=== PATIENT | male | born 1960 | race Caucasian/White ===

== ENCOUNTER 2020-01-20 08:24 | Outpatient (CLI) | payer MEDICARE, OTHER, SELFPAY ==
--- NOTE | 2020-02-19 14:19 | WPDHOMESLEEP ---
Sleep Study - Home Unattended Date of Study: 01/20/20 Ordering Provider: Jacob Sanford MD Interpreting Physician: Lauren Domínguez MD Home Sleep Study Type: Apnea Link Air Height: 1.83 m Weight: 111.13 kg Body Mass Index: 33.2 Neck Circumference (inches): 14.5 Ryan: 7 Reason for Sleep Study Diagnosed with LISBETH in 2006, using CPAP,equipment now broken; increased hypersomnia Sleep History Donald Guzman is a 60 year-old man with a history of obstructive sleep apnea. He has a CPAP. He has excessive daytime sleepiness and has falled asleep unintentionally during the day at work. He has a broken head strap and has not been able to use his CPAP recently. He has nocturia 1-2 times per night. His Ryan was 7 when he had his last study in 2006. He did not complete several pages of the current sleep questionnaire is there is no current Ryan. He had a prior sleep study on September 22, 2006 showing moderate obstructive sleep apnea with an AHI of 21 with heavy snoring and oxygen desaturation to 82%. His oxygen desaturation index was 92.2. His optimal pressure was 12 cm of CPAP. Habits: Never smoked. No alcohol. [facility] Past Medical History Medical History Acute non-recurrent maxillary sinusitis Ataxia Chronic depression Inflamed seborrheic keratosis Male erectile dysfunction, unspecified Type 2 diabetes mellitus without complication, with long-term current use of insulin Family History Family History Father Family history of diabetes mellitus in first degree relative Diabetes mellitus Hypertension Family history of cardiovascular disease Mother Family history of diabetes mellitus in first degree relative Diabetes mellitus Hypertension Family history of cardiovascular disease Grandparent Diabetes mellitus Hypertension Family history of cardiovascular disease Family history of malignant neoplasm Social History Social History Smoking status: Never smoker Alcohol intake: never Medications Home Medications Medication Instructions Recorded Confirmed Type cyanocobalamin (vitamin B-12) 5,000 mcg SUBLINGUAL DAILY 02/11/19 01/06/20 History 5,000 mcg sublingual tablet levofloxacin 500 mg tablet 500 mg PO DAILY 02/11/19 01/06/20 History magnesium oxide 500 mg tablet 500 mg PO DAILY 02/11/19 01/06/20 History warfarin 10 mg tablet 10 mg PO DAILY 02/11/19 01/06/20 History lancets #200 each 03/14/19 01/06/20 Rx sildenafil (pulm.hypertension) 20 See Rx Instructions PO ONCE #90 03/17/19 01/06/20 Rx mg tablet tablet tadalafil 10 mg tablet 10 mg PO DAILY PRN #10 tablet 06/02/19 01/06/20 Rx pen needle, diabetic 31 gauge x #300 each 06/21/19 01/06/20 Rx 5/ pen needle, diabetic 31 gauge x #100 each 06/24/19 01/06/20 Rx 05/26 warfarin 1 mg tablet 3 mg PO DAILY #270 tablet 10/04/19 01/06/20 Rx atorvastatin 20 mg tablet 20 mg PO DAILY #90 tablet 10/07/19 01/06/20 Rx warfarin 1 mg tablet 3 mg PO DAILY #270 tablet 10/07/19 01/06/20 Rx insulin detemir U-100 100 unit/mL 40 unit SUB-Q DAILY #15 ml 10/14/19 01/06/20 Rx (3 mL) subcutaneous pen metformin 500 mg tablet,extended 2,000 mg PO QPM #360 tablet 11/04/19 01/06/20 Rx release 24 hr escitalopram oxalate 20 mg tablet 20 mg PO DAILY #90 tablet 11/26/19 01/06/20 Rx trazodone 50 mg tablet 50 mg PO .qhs #90 tablet 12/13/19 01/06/20 Rx aripiprazole 2 mg tablet 2 mg PO DAILY #90 tablet 01/06/20 01/06/20 Rx gabapentin 600 mg tablet 600 mg PO TID #270 tablet 01/06/20 01/06/20 Rx tamsulosin 0.4 mg capsule 0.4 mg PO . b.i.d. #180 cap 01/06/20 01/06/20 Rx cyclobenzaprine 10 mg tablet 10 mg PO TID PRN #90 tablet 01/20/20 Rx lancets 30 gauge #100 ea 02/19/20 Rx Sleep Procedure This test was performed using 4 channel monitoring including respiratory effort channel, snoring channel, heart rate
[2020-02-19 14:32] VITALS: BMI 33.2
== END 2020-01-20 08:25 | disposition home or self-care (01) ==
LOC: ANHCSM 08:25
PROVIDERS: PCP Family Medicine; Visit Provider Family Medicine
DX: G47.33 Obstructive sleep apnea (adult) (pediatric) (principal)
CPT/HCPCS: 95806

== ENCOUNTER 2020-03-20 02:12 | Outpatient (CLI) | payer MEDICARE, OTHER, SELFPAY ==
[2020-03-20 17:23] LABS: SARS-CoV-2 RNA PCR Negative
== END 2020-03-20 02:13 | disposition home or self-care (01) ==
LOC: ANHCOVIDDT 02:12
PROVIDERS: PCP Family Medicine; Visit Provider Internal Medicine Critical Care Medicine
DX: R68.89 Other general symptoms and signs (principal); Z20.822 Contact with and (suspected) exposure to COVID-19
CPT/HCPCS: C9803; U0003

== ENCOUNTER 2020-03-23 08:23 | Outpatient (CLI) | payer MEDICARE, OTHER, SELFPAY ==
--- NOTE | 2020-05-01 15:05 | WPDSLEEPSTUD ---
Sleep Study Date of Study: 03/23/20 Ordering Provider: Jacob Sanford MD Interpreting Physician: Lauren Domíngeuz MD Sleep Study Type: CPAP Titration Height: 1.85 m Weight: 111.13 kg Body Mass Index: 32.3 Neck Circumference: 38.1 cm Everett: 7 Reason for Sleep Study Home Sleep Test 01/20/2020-AHI 39, lowest sat 81%, 91 min / 17% of the test < 88% saturation; returns for a titration LISBETH diagnosed 2006, previously treated with 12 cm, equipment broke Sleep History Donald Guzman is a 60-year-old male with a history of LISBETH in 2006, was on 12 cm CPAP which has broken, and he has not been able to use it. He has excessive daytime sleepiness and has fallen asleep unintentionally during the day at work. He has a broken head strap and has not been able to use his CPAP recently. He has nocturia 1-2 times per night. His Everett was 7 when he had his last study in 2006. He did not complete several pages of the current sleep questionnaire is there is no current Everett. He had a prior sleep study on September 22, 2006 showing moderate obstructive sleep apnea with an AHI of 21 with heavy snoring and oxygen desaturation to 82%. His oxygen desaturation index was 92.2. His optimal pressure was 12 cm of CPAP. Habits: Never smoked. No alcohol. [facility] Past Medical History Medical History (Updated 02/19/20 @ 14:40 by Lauren Domínguez MD) Acute non-recurrent maxillary sinusitis Ataxia Chronic depression Inflamed seborrheic keratosis Male erectile dysfunction, unspecified Obstructive sleep apnea (~2006) Type 2 diabetes mellitus without complication, with long-term current use of insulin Family History Family History Father Family history of diabetes mellitus in first degree relative Diabetes mellitus Hypertension Family history of cardiovascular disease Mother Family history of diabetes mellitus in first degree relative Diabetes mellitus Hypertension Family history of cardiovascular disease Grandparent Diabetes mellitus Hypertension Family history of cardiovascular disease Family history of malignant neoplasm Social History Social History Smoking status: Never smoker Alcohol intake: never Medications Home Medications Medication Instructions Recorded Confirmed Type cyanocobalamin (vitamin B-12) 5,000 mcg SUBLINGUAL DAILY 02/11/19 01/06/20 History 5,000 mcg sublingual tablet levofloxacin 500 mg tablet 500 mg PO DAILY 02/11/19 01/06/20 History magnesium oxide 500 mg tablet 500 mg PO DAILY 02/11/19 01/06/20 History warfarin 10 mg tablet 10 mg PO DAILY 02/11/19 01/06/20 History sildenafil (pulm.hypertension) 20 See Rx Instructions PO ONCE #90 03/17/19 01/06/20 Rx mg tablet tablet tadalafil 10 mg tablet 10 mg PO DAILY PRN #10 tablet 06/02/19 01/06/20 Rx pen needle, diabetic 31 gauge x #300 each 06/21/19 01/06/20 Rx 5/16 pen needle, diabetic 31 gauge x #100 each 06/24/19 01/06/20 Rx 3/16 warfarin 1 mg tablet 3 mg PO DAILY #270 tablet 10/04/19 01/06/20 Rx atorvastatin 20 mg tablet 20 mg PO DAILY #90 tablet 10/07/19 01/06/20 Rx warfarin 1 mg tablet 3 mg PO DAILY #270 tablet 10/07/19 01/06/20 Rx metformin 500 mg tablet,extended 2,000 mg PO QPM #360 tablet 11/04/19 01/06/20 Rx release 24 hr escitalopram oxalate 20 mg tablet 20 mg PO DAILY #90 tablet 11/26/19 01/06/20 Rx trazodone 50 mg tablet 50 mg PO .qhs #90 tablet 12/13/19 01/06/20 Rx aripiprazole 2 mg tablet 2 mg PO DAILY #90 tablet 01/06/20 01/06/20 Rx gabapentin 600 mg tablet 600 mg PO TID #270 tablet 01/06/20 01/06/20 Rx tamsulosin 0.4 mg capsule 0.4 mg PO . b.i.d. #180 cap 01/06/20 01/06/20 Rx cyclobenzaprine 10 mg tablet 10 mg PO TID PRN #90 tablet 01/20/20 Rx blood sugar diagnostic #100 ea 03/20/20 Rx lancets 30 gauge #100 ea 03/20/20 Rx lancets 30 gauge #100 ea 03/20/20 Rx insulin detemir U-100 100 unit/mL 40 unit SUB-Q DAILY #1
[2020-05-01 15:10] VITALS: BMI 32.3
== END 2020-03-23 08:24 | disposition home or self-care (01) ==
LOC: ANHCSM 08:25
PROVIDERS: PCP Family Medicine; Visit Provider Family Medicine
DX: G47.33 Obstructive sleep apnea (adult) (pediatric) (principal)
CPT/HCPCS: 95811

== ENCOUNTER 2020-04-10 00:34 | Outpatient (CLI) | payer MEDICARE, OTHER, SELFPAY ==
[2020-04-10 19:17] LABS: SARS-CoV-2 RNA PCR Negative
== END 2020-04-10 00:35 | disposition home or self-care (01) ==
LOC: ANHCOVIDDT 00:34
PROVIDERS: Family Provider Family Medicine; PCP Family Medicine; Visit Provider Internal Medicine Critical Care Medicine
DX: R68.89 Other general symptoms and signs (principal); Z20.822 Contact with and (suspected) exposure to COVID-19
CPT/HCPCS: C9803; U0003; U0005

== ENCOUNTER 2020-04-13 09:07 | Outpatient (CLI) | payer MEDICARE, OTHER, SELFPAY | END 2020-04-13 09:08 | disposition home or self-care (01) | LOC: ANHCSM 09:08 | PROVIDERS: Family Provider Family Medicine; PCP Family Medicine; Visit Provider Family Medicine | DX: G47.33 Obstructive sleep apnea (adult) (pediatric) (principal) | CPT/HCPCS: 95811 ==

== ENCOUNTER 2020-10-05 12:07 | Emergency (ER) | payer MEDICARE, OTHER, SELFPAY ==
--- NOTE | ~2020-10-05 | XR_ITS ---
EXAMINATION: XR toe 1st LT min 2V EXAM DATE: 10/05/2020 12:41 INDICATION: Left 1st toe pain, redness onset x 3 days, no known injury . Diabetes. TECHNIQUE: Left 1st toe frontal, lateral and oblique projections obtained and reviewed. There is n o prior study for comparison. FINDINGS: There are no bony erosions identified. There are no acute left 1st toe fractures or disloc ations identified. There is no subcutaneous gas. The soft tissue is unremarkable. Fibular hardwar e. IMPRESSION: No acute osseous findings. Reviewed, dictated and finalized at location B. IMPRESSION: No acute osseous findings.
[2020-10-05 12:23] VITALS: BP 100/72; PULSE 138; RESP 16; TEMP 36.6; O2SAT 95
--- NOTE | 2020-10-05 12:58 | ED.LOWEXIN ---
HPI - Extremity Injury (Lower) General Chief Complaint: Extremity Injury, Lower Stated Complaint: lt foot big toe injury Time Seen by Provider: 10/05/20 12:50 Source: patient and RN notes reviewed Mode of arrival: ambulatory Limitations: no limitations History of Present Illness HPI Narrative: Patient presents today complaining of a 2-day history of left foot pain and redness, starting at the base of the left great toe and extending towards the ankle. Patient denies any known injury that he remembers, but does have some short-term memory loss and may have run over his foot with a josé luis. Reports his pain is an 8/10 at rest, but increases to 10/10 with any movement or weightbearing. History of diabetes. Patient did take 1 hydrocodone today without relief of symptoms. MD complaint: other (Left foot pain) Related Data Home Medications Medication Instructions Recorded Confirmed cyanocobalamin (vitamin B-12) 5,000 mcg SUBLINGUAL DAILY 02/11/19 09/17/20 5,000 mcg sublingual tablet magnesium oxide 500 mg tablet 500 mg PO DAILY 02/11/19 09/17/20 Allergies Allergy/AdvReac Type Severity Reaction Status Date / Time amoxicillin Allergy Unknown Rash Verified 10/05/20 12:26 Penicillins Allergy Unknown Dermatitis Verified 10/05/20 12:26 Review of Systems Review of Systems: Narrative: CONSTITUTIONAL: Denies body aches, fever, chills, or sweats. EYES: Denies visual changes, redness, or discharge. ENT: Denies rhinorrhea, congestion, sore throat, or otalgia. CARDIOVASCULAR: Denies chest pain, palpitations, or edema. RESPIRATORY: Denies cough or dyspnea. GASTROINTESTINAL: Denies abdominal pain, nausea, vomiting, or diarrhea. GENITOURINARY: Denies dysuria or hematuria. SKIN: Denies rash, itching, or wounds. MUSCULOSKELETAL: Denies back pain, or myalgia. + Left foot pain and redness NEUROLOGIC: Denies headache, numbness, tingling, or weakness. PSYCH: Denies depression or anxiety. [facility] Past Medical History Medical History Acute non-recurrent maxillary sinusitis Ataxia BMI 31.0-31.9,adult Body mass index (bmi) 34.0-34.9, adult (01/02/19) Chronic depression Inflamed seborrheic keratosis Male erectile dysfunction, unspecified Obstructive sleep apnea (~2006) CPAP at 14 cm water pressure with medium air fit P 10 nasal mask with titration 03/23/2020 Type 2 diabetes mellitus without complication, with long-term current use of insulin UTI (urinary tract infection) Family History Family History Father Family history of diabetes mellitus in first degree relative Diabetes mellitus Hypertension Family history of cardiovascular disease Mother Family history of diabetes mellitus in first degree relative Diabetes mellitus Hypertension Family history of cardiovascular disease Grandparent Diabetes mellitus Hypertension Family history of cardiovascular disease Family history of malignant neoplasm Social History Social History Smoking status: Never smoker Alcohol intake: current Alcohol use details: rarely Substance use: never Substance use type: does not use Comments At time of signature, I have reviewed and agree with nursing past medical, surgical, social and family history unless otherwise noted. Please see nursing chart for further information. There is no relevant family history pertinent to the presenting complaint Exam Narrative: Exam Narrative: GENERAL: Well-appearing, well-nourished, and in no acute distress. HEAD: Normocephalic, atraumatic. EYES: EOMI. No redness or drainage. Conjunctivae normal. ENT: Mucous membranes pink and moist. NECK: Normal AROM. CHEST: No respiratory distress. EXTREMITIES: Left foot: Moderate erythema beginning at the first MTP and extending slightly laterally and distally to the mi
== END 2020-10-05 13:19 | disposition home or self-care (01) ==
PROVIDERS: Emergency Provider Nurse Practitioner; PCP Family Medicine
DX: M10.9 Gout, unspecified (principal); G47.33 Obstructive sleep apnea (adult) (pediatric); E11.9 Type 2 diabetes mellitus without complications
CPT/HCPCS: 73660; 99213; G0463

== ENCOUNTER 2020-10-06 16:39 | Emergency (ER) | payer MEDICARE, OTHER, SELFPAY ==
--- NOTE | ~2020-10-06 | XR_ITS ---
EXAMINATION: XR foot LT min 3V DATE: 10/06/2020 17:42 INDICATION: Left foot pain and swelling TECHNIQUE: Dorsoplantar, lateral, and 2 oblique views of the left foot were obtained. COMPARISON: 10/05/2020 FINDINGS: Bone alignment is normal. There is no fracture. There is mild osteoarthritis in multiple in terphalangeal joints as well as at the first metatarsophalangeal joint. Internal stabilization hardwa re is present in the distal fibula. There is mild soft tissue swelling overlying the distal metatarsa ls.. IMPRESSION: 1. Mild soft tissue swelling of the distal foot without acute osseous abnormality. Reviewed, dictated and finalized at location A. IMPRESSION: 1. Mild soft tissue swelling of the distal foot without acute osseous abnormali ty.
[2020-10-06 17:21] VITALS: BP 97/69; PULSE 91; RESP 18; TEMP 36.9; O2SAT 94
--- NOTE | 2020-10-06 17:31 | PC.NURSE ---
Dr Rodriguez aware of patient's CC and urgent care visit yesterday. Verbal order for left foot xray.
[2020-10-06 18:49] LABS: Basophils Percent Auto 0.3 % (0.2-1.2); Eosinophils Percent Auto 0.1 % (0-4.4); Hematocrit 44.5 % (42.0-52.0); Hemoglobin 14.3 g/dL (14.0-18.0); Immature Granulocyte Absolute 0.04 K/mm3 (0.00-0.031); Immature Granulocyte Percent A 0.3 % (0-0.5); Lymphocytes Absolute Auto 0.75 K/mm3 (0.9-3.2); Lymphocytes Percent Auto 6.1 % (18.3-44.2); Mean Corpuscular HGB Conc 32.1 g/dl (32-36); Mean Corpuscular Hemoglobin 28.6 pg (26-34); Monocytes Absolute Auto 0.7 K/mm3 (0.1-0.6); Monocytes Percent Auto 5.9 % (2.6-8.5); Neutrophils Absolute Auto 10.7 K/mm3 (1.3-6.7); Neutrophils Percent Auto 87.3 % (45.5-73.1); Platelet Count Result 176 k/mm3 (150-375); Red Cell Distribution Width 13.6 % (11.5-14.5); White Blood Count 12.2 K/mm3 (4.5-10.0)
[2020-10-06] MEDS: SODIUM CHLORIDE 0.9% IV 1,000 ML 999 ML IV CONT (18:49)
--- NOTE | 2020-10-06 18:53 | ED.GENADULT ---
HPI - General Adult General Chief complaint: Unspecified Stated complaint: L FOOT REDNESS/SWELLING Time Seen by Provider: 10/06/20 18:20 Source: patient Mode of arrival: ambulatory Limitations: no limitations History of Present Illness HPI narrative: Patient is a 60-year-old male who presents complaining of left foot pain x1 day. Patient reports redness and pain started at left great toe, reports increased swelling, redness and tenderness to left dorsal foot. Warmth noted with palpation. Patient denies known injury, however, has a history of short-term memory loss and could have injured. Patient was seen yesterday at urgent care x-ray of great toe completed, negative. He was diagnosed with gout and was started on glucocorticoids yesterday. Reports increased pain of 10/10 with ambulation and increased erythema. He denies all other complaints at this time. Related Data Home Medications Medication Instructions Recorded Confirmed cyanocobalamin (vitamin B-12) 5,000 mcg SUBLINGUAL DAILY 02/11/19 10/05/20 5,000 mcg sublingual tablet magnesium oxide 500 mg tablet 250 mg PO DAILY 02/11/19 10/05/20 aripiprazole [Abilify] 7 mg PO DAILY 10/05/20 10/05/20 hydrocodone-acetaminophen 1 tablet PO Q4H PRN 10/05/20 10/05/20 meclizine 25 mg PO DAILY PRN 10/05/20 10/05/20 metformin 2,000 mg PO HS 10/05/20 10/05/20 warfarin [Jantoven] 1 mg PO TID 10/05/20 10/05/20 Allergies Allergy/AdvReac Type Severity Reaction Status Date / Time amoxicillin Allergy Unknown Rash Verified 10/06/20 18:19 Penicillins Allergy Unknown Dermatitis Verified 10/06/20 18:19 Review of Systems Review of Systems: Narrative: CONSTITUTIONAL: Denies fever, chills, or sweats. EYES: Denies visual changes, redness, or discharge. ENT: Denies rhinorrhea, congestion, sore throat, or otalgia. CARDIOVASCULAR: Denies chest pain, palpitations, or edema. RESPIRATORY: Denies cough or dyspnea. GASTROINTESTINAL: Denies abdominal pain, nausea, vomiting, or diarrhea. GENITOURINARY: Denies dysuria or hematuria. SKIN: Denies rash or itching. MUSCULOSKELETAL: Reports left foot pain NEUROLOGIC: Denies headache, numbness, dizziness, or weakness. PSYCHIATRIC: Denies anxiety or depression. [facility] Past Medical History Medical History Acute non-recurrent maxillary sinusitis Ataxia BMI 31.0-31.9,adult Body mass index (bmi) 34.0-34.9, adult (01/02/19) Chronic depression Inflamed seborrheic keratosis Male erectile dysfunction, unspecified Obstructive sleep apnea (~2006) CPAP at 14 cm water pressure with medium air fit P 10 nasal mask with titration 03/23/2020 Type 2 diabetes mellitus without complication, with long-term current use of insulin UTI (urinary tract infection) Family History Family History Father Family history of diabetes mellitus in first degree relative Diabetes mellitus Hypertension Family history of cardiovascular disease Mother Family history of diabetes mellitus in first degree relative Diabetes mellitus Hypertension Family history of cardiovascular disease Grandparent Diabetes mellitus Hypertension Family history of cardiovascular disease Family history of malignant neoplasm Social History Social History Smoking status: Never smoker Alcohol intake: current Alcohol use details: rarely Substance use: never Substance use type: does not use Comments At the time of signature, I have reviewed and agree with nursing past medical, surgical, social, and family history unless otherwise noted. Please see nursing chart for further information. There is no relevant family history pertinent to the presenting complaint. Exam Narrative: Exam Narrative: GENERAL: Well-appearing, well-nourished, and in no acute distress. HEAD: Normocephalic, atraumatic. EYES: EOMI. No red
[2020-10-06 19:07] LABS: Alanine Aminotransferase 20 U/L (4-50); Alkaline Phosphatase 111 U/L (38-126); Anion Gap 7 mmol/L (8-16); Aspartate Amino Transferase 22 U/L (17-59); Bilirubin,Total 0.8 mg/dL (0.2-1.3); Blood Urea Nitrogen 15 mg/dL (9-20); Calcium 9.2 mg/dL (8.4-10.2); Carbon Dioxide 27 mmol/L (22-30); Chloride 97 mmol/L (98-107); Estimated CRCL calculation 87 ml/min; Estimated Glomerular Filt Rate > 60; Glucose 228 mg/dL (65-110); Potassium 5.3 mmol/L (3.4-5.0); Sodium 131 mmol/L (137-145); Uric Acid 3.5 mg/dL (3.5-8.5)
[2020-10-06 19:45] LABS: CRP 13.7 mg/dL (<1.0)
[2020-10-06 19:50] LABS: Erythrocyte Sedimentation Rate 20 mm/hr (0-20)
== END 2020-10-06 21:06 | disposition home or self-care (01) ==
PROVIDERS: Emergency Provider Nurse Practitioner; PCP Family Medicine
DX: L03.116 Cellulitis of left lower limb (principal); G47.33 Obstructive sleep apnea (adult) (pediatric); E11.9 Type 2 diabetes mellitus without complications; Z87.440 Personal history of urinary (tract) infections; Z79.84 Long term (current) use of oral hypoglycemic drugs; Z79.01 Long term (current) use of anticoagulants
CPT/HCPCS: 36415; 73630; 80053; 84550; 85025; 85652; 86140; 96361; 96365; 99284; J0131; J7030

== ENCOUNTER 2020-10-20 15:30 | Emergency (ER) | payer MEDICARE, OTHER, SELFPAY ==
[2020-10-20] VITALS (15 sets, daily range): BP systolic 126–152; BP diastolic 91–108; PULSE 111–134; RESP 15–20; TEMP 36.3–37.3; O2SAT 70–99
--- NOTE | ~2020-10-20 | XR_ITS ---
EXAMINATION: XR foot RT min 3V DATE: 10/20/2020 20:23 INDICATION: Right foot pain TECHNIQUE: Dorsoplantar, two oblique and lateral views of the right foot were obtained. COMPARISON: None. FINDINGS: Alignment is normal. No fracture. Mild osteoarthritis at the first metatarsophalangeal and a few tars ometatarsal and interphalangeal joints. No cortical erosions to suggest inflammatory arthritis. Achil les calcaneal spur. Soft tissues are unremarkable. IMPRESSION: 1. Mild polyarticular osteoarthritis and Achilles calcaneal spur. No acute osseous abnormality. Reviewed, dictated and finalized at location A. IMPRESSION: 1. Mild polyarticular osteoarthritis and Achilles calcaneal spur. No acute osse ous abnormality.
--- NOTE | ~2020-10-20 | XR_ITS ---
EXAMINATION: XR toe 1st LT min 2V DATE: 10/20/2020 20:23 INDICATION: Pain at the left great toe TECHNIQUE: Dorsal plantar, lateral and oblique views of the left great toe were obtained. COMPARISON: 10/06/2020 FINDINGS: Alignment is normal. No fracture. Mild osteoarthritis at the first metatarsophalangeal joint injectio n of the interphalangeal joints of the second and third toes. No cortical erosions or periosteal reac tion. Soft tissues are unremarkable. IMPRESSION: No acute osseous abnormality. Reviewed, dictated and finalized at location A.
[2020-10-20 16:10] LABS: Basophils Absolute Auto 0.1 K/mm3 (0.0-0.1); Basophils Percent Auto 0.5 % (0.2-1.2); Eosinophils Absolute Auto 0.1 K/mm3 (0-0.3); Eosinophils Percent Auto 1.1 % (0-4.4); Hematocrit 49.5 % (42.0-52.0); Hemoglobin 15.6 g/dL (14.0-18.0); Immature Granulocyte Absolute 0.02 K/mm3 (0.00-0.031); Immature Granulocyte Percent A 0.2 % (0-0.5); Lymphocytes Absolute Auto 1.25 K/mm3 (0.9-3.2); Lymphocytes Percent Auto 13.2 % (18.3-44.2); Mean Corpuscular HGB Conc 31.5 g/dl (32-36); Mean Corpuscular Hemoglobin 27.9 pg (26-34); Mean Corpuscular Volume 88.6 fl (80-100); Mean Platelet Volume 9.6 fl (7.4-10.4); Monocytes Absolute Auto 0.6 K/mm3 (0.1-0.6); Neutrophils Absolute Auto 7.5 K/mm3 (1.3-6.7); Platelet Count Result 265 k/mm3 (150-375); Red Blood Count 5.59 M/mm3 (4.6-6.20); Red Cell Distribution Width 13.6 % (11.5-14.5); White Blood Count 9.4 K/mm3 (4.5-10.0)
[2020-10-20 16:28] LABS: Anion Gap 9 mmol/L (8-16); Blood Urea Nitrogen 11 mg/dL (9-20); Calcium 9.8 mg/dL (8.4-10.2); Carbon Dioxide 28 mmol/L (22-30); Chloride 100 mmol/L (98-107); Estimated CRCL calculation 94 ml/min; Estimated Glomerular Filt Rate > 60; Glucose 205 mg/dL (65-110); Potassium 4.3 mmol/L (3.4-5.0); Sodium 137 mmol/L (137-145); Uric Acid 3.5 mg/dL (3.5-8.5)
--- NOTE | 2020-10-20 20:23 | PC.NURSE ---
Called lab requesting add ons.
[2020-10-20 20:36] LABS: CRP 0.5 mg/dL (<1.0); INR 0.9; Prothrombin Time 12.5 Seconds (11.1-14.7)
[2020-10-20] MEDS: HYDROcodone/acetaminophen (*CRX) 5-325 MG TABLET 1 TAB PO (20:36)
[2020-10-20] MEDS: ONDANSETRON HCL ODT 4 MG TABLET PO (20:36)
[2020-10-20 20:37] LABS: Partial Thromboplastin Time 26.9 SECONDS (22.3-36.8)
--- NOTE | 2020-10-20 20:40 | ED.EXTPRO ---
HPI - Extremity Problem General Chief complaint: Extremity Problem,Nontraumatic Stated complaint: foot infection Time Seen by Provider: 10/20/20 19:51 Source: patient and RN notes reviewed Mode of arrival: ambulatory Limitations: no limitations History of Present Illness HPI Narrative: This is a 60 year old male with history of DM, chronic anticoagulation, anxiety who presents for evaluation of left great toe pain . Patient states he developed pain at great toe 1 week ago . He reports redness and pain. He states he was placed on antibiotics but he still has pain. He denies nausea, vomiting, fever or chills. He denies trauma. He also complaints of pain right 2nd and 3rd toes. Related Data Home Medications Medication Instructions Recorded Confirmed cyanocobalamin (vitamin B-12) 5,000 mcg SUBLINGUAL DAILY 02/11/19 10/09/20 5,000 mcg sublingual tablet magnesium oxide 500 mg tablet 250 mg PO DAILY 02/11/19 10/09/20 hydrocodone-acetaminophen 1 tablet PO Q4H PRN 10/05/20 10/09/20 meclizine 25 mg PO DAILY PRN 10/05/20 10/09/20 Allergies Allergy/AdvReac Type Severity Reaction Status Date / Time amoxicillin Allergy Unknown Rash Verified 10/20/20 20:28 Penicillins Allergy Unknown Dermatitis Verified 10/20/20 20:28 Review of Systems Review of Systems: All systems reviewed & are unremarkable except as noted in HPI and below PMFSH Past Medical History Medical History (Updated 10/21/20 @ 00:00 by Background Daoleksandr) Acute non-recurrent maxillary sinusitis Ataxia BMI 30.0-30.9,adult BMI 31.0-31.9,adult Body mass index (bmi) 34.0-34.9, adult (01/02/19) Chronic depression Inflamed seborrheic keratosis Male erectile dysfunction, unspecified Obstructive sleep apnea (~2006) CPAP at 14 cm water pressure with medium air fit P 10 nasal mask with titration 03/23/2020 Type 2 diabetes mellitus without complication, with long-term current use of insulin UTI (urinary tract infection) Family History Family History (Reviewed 10/09/20 @ 10:33 by Jonah Kerr [facility]) Father Family history of diabetes mellitus in first degree relative Diabetes mellitus Hypertension Family history of cardiovascular disease Mother Family history of diabetes mellitus in first degree relative Diabetes mellitus Hypertension Family history of cardiovascular disease Grandparent Diabetes mellitus Hypertension Family history of cardiovascular disease Family history of malignant neoplasm Social History Social History (Reviewed 10/09/20 @ 10:33 by Jonah Kerr [facility]) Smoking status: Never smoker Alcohol intake: current Alcohol use details: rarely Substance use: never Substance use type: does not use Exam Const: General: alert Orientation/consciousness: patient oriented x3 Other: anxious Resp: Effort & Inspection: normal respiratory effort and no retractions Auscultation: clear to auscultation bilaterally GI: GI Palp: Yes Soft to palpation, No Tenderness to palpation present (GI) and No Guarding due to palpation present (GI) Auscultation: normal bowel sounds Neuro: General: patient oriented x3 and moves all extremities Extrem: Other: right foot- strong pedal pulses, no swelling, no redness, left foot at 1st MTP joint with TTP and redness, strong pedal pulse. Psych: Affect: Anxious affect present Course Reevaluation(s) Reevaluation #1: I discussed with patient that this is most likely gout arthritis. I do not believe it is septic joint given normal labs. Date: 10/20/20 Time: 22:01 Vital Signs Vital signs: Vital Signs Temperature 97.4 F L 10/20/20 15:42 Pulse Rate 126 H 10/20/20 15:42 Respiratory Rate 16 10/20/20 15:42 Blood Pressure 147/91 H 10/20/20 15:42 Pulse Oximetry 98 10/20/20 15:42 Temperature 98.2 F 10/20/20 22:47 Pulse Rate 111 H 10/20/20 22:47 Respiratory Rate 15 10/20/20 22:47 Blood Pressure 140/98 H 10/20/20 22:47 Pulse Oximetry 98 08
[2020-10-20] MEDS: INDOMETHACIN 25 MG CAPSULE PO (21:10)
--- NOTE | 2020-10-20 21:13 | PC.NURSE ---
Urinal emptied for 100 cc
[2020-10-20] MEDS: COLCHICINE 0.6 MG TABLET PO ×2 (22:28→22:29)
--- NOTE | 2020-10-20 22:46 | PC.NURSE ---
Confirmed with Dr Cheatham prior to administration. Pt to receive both doses of colchicine
== END 2020-10-20 22:51 | disposition home or self-care (01) ==
PROVIDERS: Emergency Medicine; Emergency Provider General Practice; PCP Family Medicine
DX: M10.9 Gout, unspecified (principal); E11.9 Type 2 diabetes mellitus without complications; Z79.891 Long term (current) use of opiate analgesic
CPT/HCPCS: 36415; 73630; 73660; 80048; 84550; 85025; 85610; 85730; 86140; 99284; A9270

== ENCOUNTER 2021-06-08 18:36 | Emergency (ER) | payer MEDICARE, OTHER, SELFPAY ==
--- NOTE | ~2021-06-08 | CT_ITS ---
EXAMINATION: CT lumbar spine wo con DATE: 06/08/2021 20:54 INDICATION: Fall. Back pain. TECHNIQUE: Computed tomography (CT) of the lumbar spine was performed without intravenous contrast. T he mA was adjusted according to patient size. Iterative reconstruction technique was employed. Exam d ose: 1115.72 mGy-cm total exam DLP. Lumbar spine COMPARISON: 01/16/2019 MR lumbar spine FINDINGS: There is postoperative change from laminectomy and posterior and interbody spinal fusion at L3-4. There is mild/moderate degenerative disc disease at L1-2, L2-3 and L4-5. No lumbar spine fracture or bone destruction. There is degenerative change at the apophyseal joints of the lumbar spine. IMPRESSION: Status post laminectomy and posterior and interbody spinal fusion at L3-4 Mild to moderate degenerative disc disease of the lumbar spine Reviewed, dictated and finalized at [facility] Reviewed, dictated and finalized at [facility].
[2021-06-08 19:11] VITALS: BP 119/81; PULSE 107; RESP 18; TEMP 36.4; O2SAT 96
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
[2021-06-08] MEDS: MORPHINE SULFATE (*CRX) 2 MG/ML INJ IV PUSH (22:32)
== END 2021-06-08 23:18 | disposition home or self-care (01) ==
PROVIDERS: Emergency Provider Emergency Medicine; PCP Family Medicine
DX: S39.012A Strain of muscle, fascia and tendon of lower back, initial encounter (principal); E11.9 Type 2 diabetes mellitus without complications; G47.33 Obstructive sleep apnea (adult) (pediatric); Z87.440 Personal history of urinary (tract) infections; Z98.1 Arthrodesis status; Z79.01 Long term (current) use of anticoagulants; Z79.4 Long term (current) use of insulin; F32.A Depression, unspecified; W01.0XXA Fall on same level from slipping, tripping and stumbling without subsequent striking against object, initial encounter
CPT/HCPCS: 72131; 96372; 99284; J2270

== ENCOUNTER 2022-02-26 12:52 | Emergency (ER) | payer MEDICARE, SELFPAY ==
--- NOTE | ~2022-02-26 | XR_ITS ---
EXAMINATION: XR lumbar spine min 4V DATE: 02/26/2022 15:30 INDICATION: Low back pain with prior laminectomy. TECHNIQUE: Anteroposterior, lateral, and bilateral oblique views of the lumbar spine, and cone-down l ateral view of the lumbosacral junction were obtained. COMPARISON: CT dated 06/08/2021 FINDINGS: 7 degrees lumbar levocurvature. There is straightening of the normal lordosis in the mid to upper lum bar spine. Instrumented anterior and posterior L3-L4 spinal fusion with interbody bone graft cage and bilateral vertical eric and pedicle screw fixation. There is also been a right hemilaminotomy at L3-L 4. Vertebral body heights are normal. Mild disc height loss and small degenerative endplate osteophyt es at L2-L3 and L4-L5. Bilateral multilevel mild to moderate lumbar facet osteoarthritis with lower l umbar predominant. No pars interarticularis defects. Sacral arches appear intact. Mild bilateral sacr oiliac osteoarthritis. IMPRESSION: 1. Mild lumbar spondylosis with combined noncemented anterior and posterior spinal fusion at L3-L4 an d right-sided L3-L4 hemilaminotomy. Reviewed, dictated and finalized at [facility] 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 Mild lumbar spondylosis with combined noncemented anterior and posterior spi nal fusion at L3-L4 and right-sided L3-L4 hemilaminotomy.
[2022-02-26 13:20] VITALS: BP 153/106; PULSE 122; RESP 16; TEMP 36.8; O2SAT 98
--- NOTE | 2022-02-26 14:54 | ED.GENADULT ---
HPI - General Adult General Chief complaint: Back Pain/Injury Stated complaint: back pain Time Seen by Provider: 02/26/22 14:47 History of Present Illness HPI narrative: 62-year-old male with past medical history of chronic back pain presents for evaluation of low back pain which is constant and worsened with movement. No falls, traumas or recent injury. No incontinence, focal weakness, fever, weight loss. Patient had prior laminectomy and takes hydrocodone daily for his pain but recently it has not been enough. Related Data Home Medications Medication Instructions Recorded Confirmed cyanocobalamin (vitamin B-12) 5,000 mcg sublingual DAILY 02/11/19 03/22/22 5,000 mcg sublingual tablet (Vitamin B-12) magnesium oxide 500 mg tablet 250 mg PO DAILY 02/11/19 03/22/22 meclizine 25 mg tablet 25 mg PO DAILY PRN Dizziness 10/05/20 03/22/22 Allergies Allergy/AdvReac Type Severity Reaction Status Date / Time amoxicillin Allergy Unknown Rash Verified 03/08/22 15:24 Penicillins Allergy Unknown Dermatitis Verified 03/08/22 15:24 Review of Systems Review of Systems: CONSTITUTIONAL: Denies fever, chills, or sweats. EYES: Denies visual changes, redness, or discharge. ENT: Denies rhinorrhea, congestion, sore throat, or otalgia. CARDIOVASCULAR: Denies chest pain, palpitations, or edema. RESPIRATORY: Denies cough or dyspnea. GASTROINTESTINAL: Denies abdominal pain, nausea, vomiting, or diarrhea. GENITOURINARY: Denies dysuria or hematuria. SKIN: Denies rash or itching. MUSCULOSKELETAL: Denies back pain, joint pain, or myalgia. NEUROLOGIC: Denies headache, numbness, or weakness. PSYCHIATRIC: Denies anxiety or depression. [facility] Past Medical History Medical History Acute non-recurrent maxillary sinusitis Anticoagulated on Coumadin At high risk for falls Ataxia Benign paroxysmal positional vertigo due to bilateral vestibular disorder BMI 30.0-30.9,adult BMI 31.0-31.9,adult Body mass index (bmi) 34.0-34.9, adult (01/02/19) Cellulitis of left foot Chronic anxiety Chronic bilateral low back pain with bilateral sciatica Chronic depression Chronic neck pain Diabetes mellitus with hyperglycemia, with long-term current use of insulin glucose 241 and hemoglobin A1c 9.5 on 01/08/2021. Hemoglobin A1c 10.0 on 05/26/2021. Fasting glucose 194 on 01/17/2022. 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 Ratio of 14 on 01/17/2022. Mixed hyperlipidemia total cholesterol 133, triglycerides 91, HDL 48, LDL 68 on 05/26/2021. Total cholesterol 170, triglycerides 128, HDL 51, LDL 96 on 01/17/2022. Nocturia PSA is normal at 2.2 on 05/26/2021. Obesity (BMI 30.0-34.9) Obstructive sleep apnea (~2006) CPAP at 14 cm water pressure with medium air fit P 10 nasal mask with titration 03/23/2020 Overactive bladder Recurrent deep vein thrombosis (DVT) of both lower extremities Seasonal allergic rhinitis Traumatic brain injury with loss of consciousness of 30 minutes or less Type 2 diabetes mellitus UTI (urinary tract infection) Surgical History Surgical History H/O abdominal surgery to cut a blood vessel H/O spinal fusion Family History Family History Father Family history of diabetes mellitus in first degree relative Diabetes mellitus Hypertension Family history of cardiovascular disease Mother Family history of diabetes mellitus in first degree relative Diabetes mellitus Hypertension Family history of cardiovascular disease Grandparent Diabetes mellitus Hypertension Family history of cardiovascular disease Family history of malignant kori
[2022-02-26] MEDS: MORPHINE SULFATE INJ (*CRX) 10 MG/ML AMP 4 MG IM (15:42)
[2022-02-26] MEDS: DEXAMETHASONE 2 MG TABLET 10 MG PO (15:42)
== END 2022-02-26 16:38 | disposition home or self-care (01) ==
PROVIDERS: Emergency Provider Emergency Medicine; PCP Family Medicine
DX: M54.50 Low back pain, unspecified (principal); G89.29 Other chronic pain; E11.9 Type 2 diabetes mellitus without complications; E78.2 Mixed hyperlipidemia; G47.33 Obstructive sleep apnea (adult) (pediatric); N32.81 Overactive bladder; E66.9 Obesity, unspecified; Z68.32 Body mass index [BMI] 32.0-32.9, adult; Z98.1 Arthrodesis status; Z86.718 Personal history of other venous thrombosis and embolism; Z87.440 Personal history of urinary (tract) infections; Z87.891 Personal history of nicotine dependence; Z79.85 Long-term (current) use of injectable non-insulin antidiabetic drugs; Z79.84 Long term (current) use of oral hypoglycemic drugs; Z79.01 Long term (current) use of anticoagulants; M47.816 Spondylosis without myelopathy or radiculopathy, lumbar region
CPT/HCPCS: 72110; 96372; 99283; J2270; J8540

== ENCOUNTER 2022-03-19 10:39 | Emergency (ER) | payer MEDICARE, SELFPAY ==
[2022-03-19 11:28] VITALS: BP 138/99; PULSE 118; RESP 20; TEMP 36.7; O2SAT 99
--- NOTE | 2022-03-19 11:46 | PC.NURSE ---
Patient unable to urinate, MEAGANP Chaparrita notified.
[2022-03-19 12:07] LABS: Basophils Absolute Auto 0.1 K/mm3 (0.0-0.1); Basophils Percent Auto 0.7 % (0.2-1.2); Eosinophils Absolute Auto 0.1 K/mm3 (0-0.3); Hematocrit 45.6 % (42.0-52.0); Hemoglobin 14.8 g/dL (14.0-18.0); Immature Granulocyte Absolute 0.02 K/mm3 (0.00-0.031); Immature Granulocyte Percent A 0.2 % (0-0.5); Lymphocytes Absolute Auto 0.83 K/mm3 (0.9-3.2); Lymphocytes Percent Auto 9.9 % (18.3-44.2); Mean Corpuscular HGB Conc 32.5 g/dl (32-36); Mean Corpuscular Hemoglobin 29.2 pg (26-34); Mean Corpuscular Volume 90.1 fl (80-100); Mean Platelet Volume 9.5 fl (7.4-10.4); Monocytes Absolute Auto 0.5 K/mm3 (0.1-0.6); Monocytes Percent Auto 5.8 % (2.6-8.5); Neutrophils Absolute Auto 6.9 K/mm3 (1.3-6.7); Neutrophils Percent Auto 82.4 % (45.5-73.1); Platelet Count Result 202 k/mm3 (150-375); Red Blood Count 5.06 M/mm3 (4.6-6.20); Red Cell Distribution Width 13.2 % (11.5-14.5); White Blood Count 8.4 K/mm3 (4.5-10.0)
[2022-03-19 12:07] LABS: Add Urine Microscopic? YES; Appearance Urine Clear (Clear); Bilirubin Urine Negative (Negative); Blood Urine Negative (Negative); Color Urine Yellow (Yellow); Glucose Urine UA 1+ mg/dL (Negative); Ketones Urine Negative (Negative); Leukocyte Esterase Ur Negative LEU/UL (Negative); Nitrate Urine Negative (Negative); Protein Urine Negative (Negative); Urobilinogen Urine 0.2 mg/dL (<2.0); pH Urine 6.5 (5.0-9.0)
[2022-03-19 12:20] LABS: Alanine Aminotransferase 45 U/L (6-50); Albumin Level 4.5 g/dL (3.5-5.1); Alkaline Phosphatase 82 U/L (38-126); Anion Gap 6 mmol/L (8-16); Aspartate Amino Transferase 33 U/L (17-59); Bilirubin,Total 1.1 mg/dL (0.2-1.3); Blood Urea Nitrogen 15 mg/dL (9-20); Calcium 8.8 mg/dL (8.4-10.2); Carbon Dioxide 28 mmol/L (22-30); Chloride 99 mmol/L (98-107); Estimated CRCL calculation 84 ml/min; Estimated Glomerular Filt Rate > 60; Glucose 181 mg/dL (65-110); Potassium 4.7 mmol/L (3.4-5.0); Sodium 133 mmol/L (137-145)
[2022-03-19 12:23] LABS: Bacteria Urine Trace /hpf; Mucus Urine Rare /lpf; RBC Urine 0-2 /hpf (0-2); WBC Urine 0-3 /hpf
[2022-03-19 13:16] LABS: INR 1.5; Prothrombin Time 17.6 Seconds (11.1-14.7)
[2022-03-19 13:51] VITALS: PULSE 100; RESP 18; O2SAT 98
--- NOTE | 2022-03-19 14:25 | ED.GENADULT ---
HPI - General Adult General Chief complaint: Back Pain/Injury Stated complaint: back pain, unable to urinate Time Seen by Provider: 03/19/22 11:47 Source: patient and RN notes reviewed Mode of arrival: ambulatory Limitations: no limitations History of Present Illness HPI narrative: This is a 62 year old male who presents for evaluation of urinary retention. Patient states he has been dealing with urinary incontinence for while. Yesterday he started to dribble small amounts when he urinates and today he was unable to urinate. He denies abdominal pain, nausea, vomiting, hematuria or bleeding issues. He reports lower back that is his chronic back pain. He states his back pain is not any different than usual. He reports chronic right leg and left foot numbness from previous back surgery and injury. He denies history of urinary retention. He does states he has had urinary incontinence since he was last catheterized but he is unsure of date. Related Data Home Medications Medication Instructions Recorded Confirmed cyanocobalamin (vitamin B-12) 5,000 mcg sublingual DAILY 02/11/19 03/08/22 5,000 mcg sublingual tablet (Vitamin B-12) magnesium oxide 500 mg tablet 250 mg PO DAILY 02/11/19 03/08/22 meclizine 25 mg tablet 25 mg PO DAILY PRN Dizziness 10/05/20 03/08/22 Allergies Allergy/AdvReac Type Severity Reaction Status Date / Time amoxicillin Allergy Unknown Rash Verified 03/08/22 15:24 Penicillins Allergy Unknown Dermatitis Verified 03/08/22 15:24 Review of Systems Constitutional: Constitutional: Denies weakness Cardiovascular: Cardiovascular: Denies syncope, Denies rapid heart rate, Denies irregular heart rhythm, Denies leg edema and Denies dyspnea Respiratory: Respiratory: Denies chest congestion, Denies hemoptysis, Denies excessive phlegm production and Denies dyspnea Gastrointestinal: Gastrointestinal: Denies abdominal pain, Denies hematochezia, Denies diarrhea and Denies vomiting Genitourinary: Genitourinary: Denies hematuria, Reports oliguria, Denies dysuria, Denies penile discharge, Denies testicular pain and Reports urinary incontinence Musculoskeletal: Musculoskeletal: Reports back pain (chronic), Denies joint swelling, Denies loss of height and Denies muscle weakness Neurologic: Denies syncope, Denies focal weakness and Denies weakness PMFSH Past Medical History Medical History Acute non-recurrent maxillary sinusitis Anticoagulated on Coumadin At high risk for falls Ataxia Benign paroxysmal positional vertigo due to bilateral vestibular disorder BMI 30.0-30.9,adult BMI 31.0-31.9,adult Body mass index (bmi) 34.0-34.9, adult (01/02/19) Cellulitis of left foot Chronic anxiety Chronic bilateral low back pain with bilateral sciatica Chronic depression Chronic neck pain Diabetes mellitus with hyperglycemia, with long-term current use of insulin glucose 241 and hemoglobin A1c 9.5 on 01/08/2021. Hemoglobin A1c 10.0 on 05/26/2021. Fasting glucose 194 on 01/17/2022. 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 Ratio of 14 on 01/17/2022. Mixed hyperlipidemia total cholesterol 133, triglycerides 91, HDL 48, LDL 68 on 05/26/2021. Total cholesterol 170, triglycerides 128, HDL 51, LDL 96 on 01/17/2022. Nocturia PSA is normal at 2.2 on 05/26/2021. Obesity (BMI 30.0-34.9) Obstructive sleep apnea (~2006) CPAP at 14 cm water pressure with medium air fit P 10 nasal mask with titration 03/23/2020 Overactive bladder Recurrent deep vein thrombosis (DVT) of both lower extremities Seasonal allergic rhinitis Traumatic brain injury with loss of consciousness of 30 minutes or less Type 2 diabetes mellitus UTI (urinary tract infection) Surgical Hi
--- NOTE | 2022-03-19 14:37 | PC.NURSE ---
Catheter unclamped following initial output. Total 1500cc output at this time.
[2022-03-19 15:00] VITALS: BP 136/89; PULSE 98; RESP 18; O2SAT 98
== END 2022-03-19 15:03 | disposition home or self-care (01) ==
PROVIDERS: Emergency Provider General Practice; PCP Family Medicine
DX: R33.9 Retention of urine, unspecified (principal); E11.9 Type 2 diabetes mellitus without complications; E78.2 Mixed hyperlipidemia; G47.33 Obstructive sleep apnea (adult) (pediatric); N32.81 Overactive bladder; F32.A Depression, unspecified; E66.9 Obesity, unspecified; Z68.32 Body mass index [BMI] 32.0-32.9, adult; Z86.718 Personal history of other venous thrombosis and embolism; Z87.820 Personal history of traumatic brain injury; Z87.440 Personal history of urinary (tract) infections; Z79.01 Long term (current) use of anticoagulants; Z98.1 Arthrodesis status; Z87.891 Personal history of nicotine dependence; Z79.85 Long-term (current) use of injectable non-insulin antidiabetic drugs; Z79.84 Long term (current) use of oral hypoglycemic drugs
CPT/HCPCS: 36415; 80053; 81001; 85025; 85610; 85730; 99283

== ENCOUNTER 2022-03-30 17:29 | Emergency (ER) | payer MEDICARE, SELFPAY ==
[2022-03-30 17:42] VITALS: BP 131/88; PULSE 90; RESP 18; TEMP 36.6; O2SAT 96
--- NOTE | 2022-03-30 19:51 | ED.GENADULT ---
HPI - General Adult General Chief complaint: Urogenital-Male Stated complaint: catheter removal Time Seen by Provider: 03/30/22 18:43 Source: patient and old records reviewed Mode of arrival: ambulatory Limitations: no limitations History of Present Illness HPI narrative: Patient is a 62-year-old male with several chronic medical problems who presents to the ED wanting Kuo catheter removed. Per previous records, patient was seen in the ED here on 03/22 for acute urinary retention. He does have history of enlarged prostate. Kuo catheter was placed and he was started on Flomax at that time. Advised to follow-up with urology. He has an appt within the next 2 weeks. Patient denied having issues with the catheter, but wanted it removed today. He contacted his primary care doctor and was told he could remove it at home. He was unsure how, so he decided to come here. Patient denies any fever, nausea, vomiting, bleeding, abdominal pain. He does have a history of chronic back pain from previous injuries and surgeries and denies changes in this. Related Data Home Medications Medication Instructions Recorded Confirmed cyanocobalamin (vitamin B-12) 5,000 mcg sublingual DAILY 02/11/19 03/22/22 5,000 mcg sublingual tablet (Vitamin B-12) magnesium oxide 500 mg tablet 250 mg PO DAILY 02/11/19 03/22/22 meclizine 25 mg tablet 25 mg PO DAILY PRN Dizziness 10/05/20 03/22/22 Allergies Allergy/AdvReac Type Severity Reaction Status Date / Time amoxicillin Allergy Unknown Rash Verified 03/08/22 15:24 Penicillins Allergy Unknown Dermatitis Verified 03/08/22 15:24 Review of Systems Review of Systems: CONSTITUTIONAL: Denies fever, chills, or sweats. GASTROINTESTINAL: Denies abdominal pain, nausea, vomiting. GENITOURINARY: See HPI. SKIN: Denies rash or itching. MUSCULOSKELETAL: See HPI. All systems reviewed & are unremarkable except as noted in HPI and below PMFSH Past Medical History Medical History Acute non-recurrent maxillary sinusitis Anticoagulated on Coumadin At high risk for falls Ataxia Benign paroxysmal positional vertigo due to bilateral vestibular disorder BMI 30.0-30.9,adult BMI 31.0-31.9,adult Body mass index (bmi) 34.0-34.9, adult (01/02/19) Cellulitis of left foot Chronic anxiety Chronic bilateral low back pain with bilateral sciatica Chronic depression Chronic neck pain Diabetes mellitus with hyperglycemia, with long-term current use of insulin glucose 241 and hemoglobin A1c 9.5 on 01/08/2021. Hemoglobin A1c 10.0 on 05/26/2021. Fasting glucose 194 on 01/17/2022. 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 Ratio of 14 on 01/17/2022. Mixed hyperlipidemia total cholesterol 133, triglycerides 91, HDL 48, LDL 68 on 05/26/2021. Total cholesterol 170, triglycerides 128, HDL 51, LDL 96 on 01/17/2022. Nocturia PSA is normal at 2.2 on 05/26/2021. Obesity (BMI 30.0-34.9) Obstructive sleep apnea (~2006) CPAP at 14 cm water pressure with medium air fit P 10 nasal mask with titration 03/23/2020 Overactive bladder Recurrent deep vein thrombosis (DVT) of both lower extremities Seasonal allergic rhinitis Traumatic brain injury with loss of consciousness of 30 minutes or less Type 2 diabetes mellitus UTI (urinary tract infection) Surgical History Surgical History H/O abdominal surgery to cut a blood vessel H/O spinal fusion Family History Family History Father Family history of diabetes mellitus in first degree relative Diabetes mellitus Hypertension Family history of cardiovascular disease Mother Fa
[2022-03-30 20:36] LABS: Basophils Absolute Auto 0.1 K/mm3 (0.0-0.1); Eosinophils Absolute Auto 0.3 K/mm3 (0-0.3); Eosinophils Percent Auto 3.7 % (0-4.4); Hematocrit 45.3 % (42.0-52.0); Immature Granulocyte Absolute 0.02 K/mm3 (0.00-0.031); Immature Granulocyte Percent A 0.3 % (0-0.5); Lymphocytes Absolute Auto 1.74 K/mm3 (0.9-3.2); Lymphocytes Percent Auto 24.6 % (18.3-44.2); Mean Corpuscular HGB Conc 33.1 g/dl (32-36); Mean Corpuscular Hemoglobin 29.6 pg (26-34); Mean Corpuscular Volume 89.3 fl (80-100); Mean Platelet Volume 9.6 fl (7.4-10.4); Monocytes Absolute Auto 0.5 K/mm3 (0.1-0.6); Monocytes Percent Auto 7.2 % (2.6-8.5); Neutrophils Absolute Auto 4.5 K/mm3 (1.3-6.7); Neutrophils Percent Auto 63.2 % (45.5-73.1); Platelet Count Result 238 k/mm3 (150-375); Red Blood Count 5.07 M/mm3 (4.6-6.20); Red Cell Distribution Width 13.2 % (11.5-14.5); White Blood Count 7.1 K/mm3 (4.5-10.0)
[2022-03-30 20:45] LABS: Anion Gap 9 mmol/L (8-16); Blood Urea Nitrogen 15 mg/dL (9-20); Calcium 9.1 mg/dL (8.4-10.2); Carbon Dioxide 25 mmol/L (22-30); Chloride 102 mmol/L (98-107); Estimated CRCL calculation 94 ml/min; Estimated Glomerular Filt Rate > 60; Glucose 192 mg/dL (65-110); Potassium 4.5 mmol/L (3.4-5.0); Sodium 136 mmol/L (137-145)
[2022-03-30] MEDS: HYDROcodone/acetaminophen (*CRX) 5-325 MG TABLET 1 TAB PO (21:48)
[2022-03-30 23:01] LABS: Appearance Urine Clear (Clear); Bilirubin Urine Negative (Negative); Blood Urine Trace-lysed (Negative); Color Urine Yellow (Yellow); Glucose Urine UA Trace mg/dL (Negative); Ketones Urine Negative (Negative); Leukocyte Esterase Ur Negative LEU/UL (Negative); Nitrate Urine Negative (Negative); Protein Urine Negative (Negative); Urobilinogen Urine 0.2 mg/dL (<2.0); pH Urine 5.5 (5.0-9.0)
[2022-03-30 23:07] LABS: RBC Urine 0-2 /hpf (0-2); WBC Urine 0-3 /hpf
[2022-03-30 23:10] LABS: Add Urine Microscopic? YES
== END 2022-03-30 23:51 | disposition home or self-care (01) ==
PROVIDERS: Emergency Provider Physician Assistant; PCP Family Medicine
DX: R33.9 Retention of urine, unspecified (principal); G89.29 Other chronic pain; M54.9 Dorsalgia, unspecified; E78.2 Mixed hyperlipidemia; Z87.891 Personal history of nicotine dependence; Z46.6 Encounter for fitting and adjustment of urinary device
CPT/HCPCS: 36415; 51702; 80048; 81001; 85025; 99283; A9270

== ENCOUNTER 2022-04-01 20:47 | Emergency (ER) | payer MEDICARE, SELFPAY ==
[2022-04-01 20:55] VITALS: BP 124/84; PULSE 95; RESP 14; TEMP 36.7; O2SAT 96
--- NOTE | 2022-04-01 21:59 | ED.MALEGU ---
HPI - Male Genitourinary General Chief complaint: Urogenital-Male Stated complaint: catheter broke, urinary issue Time Seen by Provider: 04/01/22 21:22 History of Present Illness HPI Narrative: 62-year-old male history of acute urinary retention, overactive bladder presents to the emergency room because his Kuo catheter became detached from the bag. Kuo catheter was reattached to the bag in triage prior to exam. Related Data Home Medications Medication Instructions Recorded Confirmed cyanocobalamin (vitamin B-12) 5,000 mcg sublingual DAILY 02/11/19 03/22/22 5,000 mcg sublingual tablet (Vitamin B-12) magnesium oxide 500 mg tablet 250 mg PO DAILY 02/11/19 03/22/22 meclizine 25 mg tablet 25 mg PO DAILY PRN Dizziness 10/05/20 03/22/22 Allergies Allergy/AdvReac Type Severity Reaction Status Date / Time amoxicillin Allergy Unknown Rash Verified 03/08/22 15:24 Penicillins Allergy Unknown Dermatitis Verified 03/08/22 15:24 Review of Systems Review of Systems: CONSTITUTIONAL: Denies fever, chills, or sweats. EYES: Denies visual changes, redness, or discharge. ENT: Denies rhinorrhea, congestion, sore throat, or otalgia. CARDIOVASCULAR: Denies chest pain, palpitations, or edema. RESPIRATORY: Denies cough or dyspnea. GASTROINTESTINAL: Denies abdominal pain, nausea, vomiting, or diarrhea. GENITOURINARY: Denies dysuria or hematuria. SKIN: Denies rash or itching. MUSCULOSKELETAL: Denies back pain, joint pain, or myalgia. NEUROLOGIC: Denies headache, numbness, dizziness, or weakness. PSYCHIATRIC: Denies anxiety or depression. [facility] Past Medical History Medical History Acute non-recurrent maxillary sinusitis Anticoagulated on Coumadin At high risk for falls Ataxia Benign paroxysmal positional vertigo due to bilateral vestibular disorder BMI 30.0-30.9,adult BMI 31.0-31.9,adult Body mass index (bmi) 34.0-34.9, adult (01/02/19) Cellulitis of left foot Chronic anxiety Chronic bilateral low back pain with bilateral sciatica Chronic depression Chronic neck pain Diabetes mellitus with hyperglycemia, with long-term current use of insulin glucose 241 and hemoglobin A1c 9.5 on 01/08/2021. Hemoglobin A1c 10.0 on 05/26/2021. Fasting glucose 194 on 01/17/2022. 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 Ratio of 14 on 01/17/2022. Mixed hyperlipidemia total cholesterol 133, triglycerides 91, HDL 48, LDL 68 on 05/26/2021. Total cholesterol 170, triglycerides 128, HDL 51, LDL 96 on 01/17/2022. Nocturia PSA is normal at 2.2 on 05/26/2021. Obesity (BMI 30.0-34.9) Obstructive sleep apnea (~2006) CPAP at 14 cm water pressure with medium air fit P 10 nasal mask with titration 03/23/2020 Overactive bladder Recurrent deep vein thrombosis (DVT) of both lower extremities Seasonal allergic rhinitis Traumatic brain injury with loss of consciousness of 30 minutes or less Type 2 diabetes mellitus UTI (urinary tract infection) Surgical History Surgical History H/O abdominal surgery to cut a blood vessel H/O spinal fusion Family History Family History Father Family history of diabetes mellitus in first degree relative Diabetes mellitus Hypertension Family history of cardiovascular disease Mother Family history of diabetes mellitus in first degree relative Diabetes mellitus Hypertension Family history of cardiovascular disease Grandparent Diabetes mellitus Hypertension Family history of cardiovascular disease Family history of malignant neoplasm Social History Social History (Reviewed 04/01/22 @ 22:02 by Marshall Chirinos, AP
== END 2022-04-01 22:16 | disposition home or self-care (01) ==
PROVIDERS: Emergency Provider Nurse Practitioner Family; PCP Family Medicine
DX: T83.028A Displacement of other urinary catheter, initial encounter (principal); E11.9 Type 2 diabetes mellitus without complications; E78.2 Mixed hyperlipidemia; G47.33 Obstructive sleep apnea (adult) (pediatric); N32.81 Overactive bladder; E66.9 Obesity, unspecified; Z68.31 Body mass index [BMI] 31.0-31.9, adult; F32.A Depression, unspecified; F41.9 Anxiety disorder, unspecified; Z86.718 Personal history of other venous thrombosis and embolism; Z87.820 Personal history of traumatic brain injury; Z87.440 Personal history of urinary (tract) infections; Z87.891 Personal history of nicotine dependence; Z79.84 Long term (current) use of oral hypoglycemic drugs; Z79.01 Long term (current) use of anticoagulants; Z79.85 Long-term (current) use of injectable non-insulin antidiabetic drugs; Y84.6 Urinary catheterization as the cause of abnormal reaction of the patient, or of later complication, without mention of misadventure at the time of the procedure
CPT/HCPCS: 99281

== ENCOUNTER 2022-05-24 20:48 | Emergency (ER) | payer MEDICARE, SELFPAY ==
[2022-05-24 21:04] VITALS: BP 126/98; PULSE 101; RESP 16; TEMP 36.7; O2SAT 99
[2022-05-24 23:31] VITALS: BP 165/105; PULSE 107; RESP 16; O2SAT 98
--- NOTE | 2022-05-25 01:15 | PC.NURSE ---
0115 - Pt wheeled out of ED by family member. Stating that I'm going home to take another pain pill. I'm going to see my doctor in the am.
== END 2022-05-25 01:15 | disposition left against medical advice (07) ==
PROVIDERS: PCP Family Medicine
DX: M54.50 Low back pain, unspecified (principal)
CPT/HCPCS: 99199

== ENCOUNTER 2022-05-25 08:12 | Outpatient (CLI) | payer MEDICARE, SELFPAY ==
--- NOTE | 2022-05-25 08:27 | ECG_ITS ---
Measurements Intervals [place] Rate: 108 P: 55 AK: 184 QRS: 1 QRSD: 101 T: 1 QT: 327 QTc: 439 Interpretive Statements SINUS TACHYCARDIA POOR R WAVE PROGRESSION, ANTERIOR LEADS BORDERLINE ST-T WAVE ABNORMALITY- INFERIOR LEADS BASELINE ARTIFACT- V6 ABNORMAL ECG NO PREVIOUS ECG AVAILABLE FOR COMPARISON Electronically Signed On 05-25-2022 9:09:58 CDT by Eduardo Weber D.O.
[2022-05-25 09:28] LABS: Basophils Absolute Auto 0.1 K/mm3 (0.0-0.1); Basophils Percent Auto 1.1 % (0.2-1.2); Eosinophils Absolute Auto 0.3 K/mm3 (0-0.3); Eosinophils Percent Auto 4.5 % (0-4.4); Hematocrit 48.5 % (42.0-52.0); Hemoglobin 15.8 g/dL (14.0-18.0); Immature Granulocyte Absolute 0.02 K/mm3 (0.00-0.031); Immature Granulocyte Percent A 0.3 % (0-0.5); Lymphocytes Absolute Auto 1.75 K/mm3 (0.9-3.2); Lymphocytes Percent Auto 24.1 % (18.3-44.2); Mean Corpuscular HGB Conc 32.6 g/dl (32-36); Mean Corpuscular Hemoglobin 29.4 pg (26-34); Mean Corpuscular Volume 90.1 fl (80-100); Mean Platelet Volume 10.7 fl (7.4-10.4); Monocytes Absolute Auto 0.6 K/mm3 (0.1-0.6); Monocytes Percent Auto 8.5 % (2.6-8.5); Neutrophils Absolute Auto 4.5 K/mm3 (1.3-6.7); Neutrophils Percent Auto 61.5 % (45.5-73.1); Platelet Count Result 224 k/mm3 (150-375); Red Blood Count 5.38 M/mm3 (4.6-6.20); Red Cell Distribution Width 13.3 % (11.5-14.5); White Blood Count 7.3 K/mm3 (4.5-10.0)
[2022-05-25 09:41] LABS: INR 1.7; Prothrombin Time 19.5 Seconds (11.1-14.7)
[2022-05-25 09:42] LABS: Partial Thromboplastin Time 28.7 SECONDS (22.3-36.8)
== END 2022-05-25 08:13 | disposition home or self-care (01) ==
LOC: ANHSURGERY 08:18
PROVIDERS: PCP Family Medicine; Visit Provider Urology
DX: R33.8 Other retention of urine (principal); E78.2 Mixed hyperlipidemia; Z01.818 Encounter for other preprocedural examination; R94.31 Abnormal electrocardiogram [ECG] [EKG]
CPT/HCPCS: 36415; 85025; 85610; 85730; 87086; 87147; 87181; 87186; 93005

== ENCOUNTER 2022-06-17 17:21 | Outpatient (CLI) | payer MEDICARE, SELFPAY ==
[2022-06-17 17:50] LABS: INR 1.4; Partial Thromboplastin Time 28.4 SECONDS (22.3-36.8); Prothrombin Time 16.8 Seconds (11.1-14.7)
[2022-06-17 18:50] LABS: Anion Gap 8 mmol/L (8-16); Blood Urea Nitrogen 17 mg/dL (9-20); Calcium 8.8 mg/dL (8.4-10.2); Carbon Dioxide 29 mmol/L (22-30); Chloride 93 mmol/L (98-107); Estimated Glomerular Filt Rate > 60; Glucose 683 mg/dL (65-110); Potassium 5.4 mmol/L (3.4-5.0); Sodium 130 mmol/L (137-145)
== END 2022-06-17 17:22 | disposition home or self-care (01) ==
PROVIDERS: Visit Provider Urology
DX: R31.0 Gross hematuria (principal); R33.8 Other retention of urine
CPT/HCPCS: 36415; 80048; 85610; 85730; 87077; 87086; 87186

== ENCOUNTER 2022-06-29 15:45 | Observation (INO) | payer MEDICARE, SELFPAY ==
[2022-05-20 15:35] VITALS: BMI 32.0
--- NOTE | 2022-05-20 15:44 | PC.NURSE ---
Report to the Outpatient Waiting Room, entrance under the green pavilion located off [facility], at time 10:00 on date 05/31/22. Planned Procedure Time: 12:00. Time changes happen often and if your time is changed the preop area will call you the afternoon before. - You and your visitor will be asked to self-screen and do not enter if you have any COVID symptoms. - Only one visitor is requested with a max of two and NO children visitors are allowed at this time. - The patient visitor may be requested to leave or wait in car when not with patient due to distancing restrictions. - A mask is optional within the hospital at this time. Patients may have clear liquids (water, carbonated beverages, clear teas, apple juice) until 3 hours prior to surgery (9:00) with a maximum of 20 ounces. - No food from midnight until time of surgery Take the following medications with a SIP of water the morning of surgery: ARIPIPRAZOLE, CYCLOBENZAPRINE, ESCITALOPRAM, GABAPENTIN, PERCOCET IF NEEDED DO NOT STOP ANY OF YOUR OTHER PRESCRIPTION MEDICATIONS PRIOR TO SURGERY EXCEPT THE FOLLOWING Medications to discontinue per physician: VITAMINS/SUPPLEMENTS Date to take last dose: 05/27/22 LAST DOSE OF WARFARIN 05/27/22 ( REPORTED BY PT) Please no make-up, nail armenian, hairspray, perfume, deodorant, or body powder the day of surgery. No jewelry (including any body piercings) or valuables the day of surgery, leave them at home. Please take a shower or bath the night before, or the morning of, surgery with an antibacterial soap. Wear comfortable, loose fitting clothing. - Jewelry must be removed prior to entering the operating room. Rings and piercings that are not removed may be cut off. - The hospital will not accept responsibility for valuables. - Please leave all valuables, including medications, at home the day of surgery. If you are going home after surgery, a licensed meals on wheels driver must drive you home. - NO public transportation without another adult if you receive anesthesia. - We recommend that an adult stay with you for 24 hours following discharge. - We also recommend that you do not drive, make important decision, drink alcoholic beverages, or take any drugs that were not prescribed by your health care provider for at least 24 hours after your discharge time. Follow any additional instructions given to you from your surgeon. If you or anyone in your household have experienced Covid symptoms in the past week, please notify your surgeon or the nurse liaison at the phone number below for possible testing. Telephone instructions given to PT/FAMILY - ROBERT MONTOYA & ZEENAT and asked if any additional questions and then verbalized understanding. Patient advised to call surgeon office or pre surgery nurse liaison [phone] if any additional questions.
--- NOTE | 2022-05-20 15:50 | PC.NURSE ---
Report to the Outpatient Waiting Room, entrance under the green pavilion located off [facility], at time 10:00 on date 05/31/22. Planned Procedure Time: 12:00. Time changes happen often and if your time is changed the preop area will call you the afternoon before. - You and your visitor will be asked to self-screen and do not enter if you have any COVID symptoms. - Only one visitor is requested with a max of two and NO children visitors are allowed at this time. - The patient visitor may be requested to leave or wait in car when not with patient due to distancing restrictions. - A mask is optional within the hospital at this time. Patients may have clear liquids (water, carbonated beverages, clear teas, apple juice) until 3 hours prior to surgery (9:00) with a maximum of 20 ounces. - No food from midnight until time of surgery Take the following medications with a SIP of water the morning of surgery: ARIPIPRAZOLE, CYCLOBENZAPRINE, ESCITALOPRAM, GABAPENTIN, PERCOCET IF NEEDED DO NOT STOP ANY OF YOUR OTHER PRESCRIPTION MEDICATIONS PRIOR TO SURGERY?EXCEPT THE FOLLOWING Medications to discontinue per physician: VITAMINS/SUPPLEMENTS Date to take last dose: 05/27/22 LAST DOSE OF WARFARIN 05/27/22 ( REPORTED BY PT) Please no make-up, nail maltese, hairspray, perfume, deodorant, or body powder the day of surgery. No jewelry (including any body piercings) or valuables the day of surgery, leave them at home. Please take a shower or bath the night before, or the morning of, surgery with an antibacterial soap. Wear comfortable, loose fitting clothing. - Jewelry must be removed prior to entering the operating room. Rings and piercings that are not removed may be cut off. - The hospital will not accept responsibility for valuables. - Please leave all valuables, including medications, at home the day of surgery. If you are going home after surgery, a licensed driver trainer must drive you home. - NO public transportation without another adult if you receive anesthesia. - We recommend that an adult stay with you for 24 hours following discharge. - We also recommend that you do not drive, make important decision, drink alcoholic beverages, or take any drugs that were not prescribed by your health care provider for at least 24 hours after your discharge time. Follow any additional instructions given to you from your surgeon. If you or anyone in your household have experienced Covid symptoms in the past week, please notify your surgeon or the nurse liaison at the phone number below for possible testing. Telephone instructions given to PT& FAMILY - ROBERT AND ZEENAT and asked if any additional questions and then verbalized understanding. Patient advised to call surgeon office or pre surgery nurse liaison [phone] if any additional questions.
--- NOTE | 2022-06-17 13:03 | PC.NURSE ---
Pt/family state that pt was in another facility's ER yesterday for INR 1.2 deemed not therapeutic by primary. Family states pt received a shot while in ER and was instructed to continue shots at home until Monday. Family did not know name of shots. Family also states pt's last dose of warfarin was on in anticipation of surgery on Monday. Pt and family state Dr. Sullivan' office is not yet aware of ER visit and instructions. Pt had taken a 10 day course of nitrofurantoin after positive urine culture in May - they were not given instructions from office about repeating prior to TURP on Monday. 1300--this RN called Reyna at Dr. Sullivan' office to notify of all above information. She will call patient's primary care physician regarding shots and warfarin. Pt will need repeat urine culture prior to procedure. Reyna will call back with updated information.
--- NOTE | 2022-06-17 13:14 | PC.NURSE ---
Addendum entered by Tiny Wilkerson RN 06/20/22 09:23: PT TO ARRIVE AT 1100 ON 06/28 FOR SURGERY AT 1300. Addendum entered by Tiny Wilkerson RN 06/17/22 14:20: PT INSTRUCTED TO FOLLOW INSTRUCTIONS FROM PRIMARY REGARDING LOVENOX. Original Note: Report to the Outpatient Waiting Room, entrance under the green pavilion located off [facility], at time 7:00 on date 06/21/22. Planned Procedure Time: 9:00. Time changes happen often and if your time is changed the preop area will call you the afternoon before. - You and your visitor will be asked to self-screen and do not enter if you have any COVID symptoms. - A mask is optional within the hospital at this time. Patients may have clear liquids (water, carbonated beverages, clear teas, apple juice) until 3 hours prior to surgery with a maximum of 20 ounces. - No food from midnight until time of surgery - Infants may have breast milk until 4 hours before surgery, formula 6 hours prior to surgery. - Children will be allowed to drink immediately following surgery. If applicable, please bring a bottle or sippy cup to assist with drinking. Juice, water, soda, and popsicles are readily available. For infants on formula, please bring formula the day of surgery. Pacifiers are allowed. Take the following medications with a SIP of water the morning of surgery: ARIPIPRAZOLE, CYCLOBENZAPRINE, ESCITALOPRAM, GABAPENTIN, PERCOCET IF NEEDED DO NOT STOP ANY OF YOUR OTHER PRESCRIPTION MEDICATIONS PRIOR TO SURGERY EXCEPT THE FOLLOWING Medications to discontinue per physician: VITAMINS/SUPPLEMENTS Date to take last dose: 06/17/22 PER PT, LAST DOSE OF WARFARIN WAS 06/16 Please no make-up, nail swazi, hairspray, perfume, deodorant, or body powder the day of surgery. No jewelry (including any body piercings) or valuables the day of surgery, leave them at home. Please take a shower or bath the night before, or the morning of, surgery with an antibacterial soap. Wear comfortable, loose fitting clothing. - Jewelry must be removed prior to entering the operating room. Rings and piercings that are not removed may be cut off. - The hospital will not accept responsibility for valuables. - Please leave all valuables, including medications, at home the day of surgery. If you are going home after surgery, a licensed chair car driver must drive you home. - NO public transportation without another adult if you receive anesthesia. - We recommend that an adult stay with you for 24 hours following discharge. - We also recommend that you do not drive, make important decision, drink alcoholic beverages, or take any drugs that were not prescribed by your health care provider for at least 24 hours after your discharge time. Follow any additional instructions given to you from your surgeon. If you or anyone in your household have experienced Covid symptoms in the past week, please notify your surgeon or the nurse liaison at the phone number below for possible testing. Telephone instructions given to BROCK and asked if any additional questions and then verbalized understanding. Patient advised to call surgeon office or pre surgery nurse liaison [phone] if any additional questions.
[2022-06-28] VITALS (14 sets, daily range): BP systolic 87–126; BP diastolic 67–90; PULSE 85–120; RESP 12–18; TEMP 36.3–36.6; O2SAT 92–100; BMI 29.1
[2022-06-28] MEDS: LACTATED RINGERS 1,000 ML 30 ML IV CONT (11:34)
[2022-06-28 11:51] LABS: Sodium 130 mmol/L (137-145)
[2022-06-28 11:58] LABS: INR 1.1
--- NOTE | 2022-06-28 13:01 | WPDHPUPDATE1 ---
History and Physical Update Update Date/Time: 06/28/22 13:01 History and Physical has been reviewed, including an updated exam of the patient. There are NO changes in the patient's condition. Risks, benefits, and alternatives have been discussed and questions answered. Patient agrees to proceed with procedure. Proceed with TURP
--- NOTE | 2022-06-28 13:02 | WPDANESEPPF ---
Anes - Initial Pre Proc Eval Procedure: Operation Date: 06/28/22 13:00 Proposed Procedures p Trans Urethral Resection Prostate - Akbar Sullivan MD Date/Time: 06/28/22 13:02 Surgeon: Akbar Sullivan MD Pre Op Diagnosis: urinary retention Patient Data Age: 62 Gender: M Height: 1.83 m Weight: 97.4 kg Last Vital Signs Temp 36.4 C 06/28/22 11:28 Pulse 120 H 06/28/22 11:28 Resp 14 06/28/22 11:28 BP 87/67 L 06/28/22 11:28 Pulse Ox 94 06/28/22 11:28 O2 Del Method Room Air 06/28/22 11:28 Allergies Allergy/AdvReac Type Severity Reaction Status Date / Time amoxicillin Allergy Unknown Rash Verified 06/28/22 11:34 Penicillins Allergy Unknown Dermatitis Verified 06/28/22 11:34 Home Medications Medication Instructions Recorded Confirmed Type cyanocobalamin (vitamin B-12) 5,000 mcg sublingual DAILY 02/11/19 06/17/22 History 5,000 mcg sublingual tablet (Vitamin B-12) magnesium oxide 500 mg tablet 250 mg PO DAILY 02/11/19 06/17/22 History blood-glucose meter (OneTouch #1 ea 03/31/20 04/21/22 Rx Ultra2 Meter kit) meclizine 25 mg tablet 25 mg PO DAILY PRN Dizziness 10/05/20 06/17/22 History lancets 30 gauge (OneTouch Delica #200 ea 05/20/21 04/21/22 Rx Lancets) blood sugar diagnostic (OneTouch #200 ea 06/21/21 04/21/22 Rx Ultra Test strips) warfarin 10 mg tablet (Jantoven) 10 mg PO DAILY #90 tabs 07/05/21 06/17/22 Rx pen needle, diabetic 31 gauge x #100 ea 07/07/21 04/21/22 Rx 3/16 (BD Ultra-Fine Mini Pen Needle) atorvastatin 20 mg tablet 20 mg PO DAILY #90 tabs 09/10/21 06/17/22 Rx warfarin 1 mg tablet (Jantoven) 3 mg PO DAILY #270 tabs 09/16/21 06/17/22 Rx cyclobenzaprine 10 mg tablet 10 mg PO TID PRN muscle spasm #180 10/20/21 06/17/22 Rx tabs gabapentin 600 mg tablet 600 mg PO TID #270 tabs 03/01/22 06/17/22 Rx tamsulosin 0.4 mg capsule 0.4 mg PO . b.i.d. #180 caps 03/01/22 06/17/22 Rx escitalopram oxalate 20 mg tablet 20 mg PO DAILY #90 tabs 03/15/22 06/17/22 Rx metformin 500 mg tablet,extended 2,000 mg PO QPM 90 days #360 tabs 03/15/22 06/17/22 Rx release 24 hr trazodone 50 mg tablet 50 mg PO .qhs #90 tabs 03/15/22 06/17/22 Rx warfarin 5 mg tablet 5 mg PO DAILY #90 tabs 03/15/22 06/17/22 Rx aripiprazole 10 mg tablet (Abilify) 10 mg PO DAILY #90 tabs 03/18/22 06/17/22 Rx oxycodone-acetaminophen 5 mg-325 1 tablet PO Q8H PRN pain #90 tabs 04/21/22 06/17/22 Rx mg tablet (Percocet) dulaglutide 4.5 mg/0.5 mL 4.5 mg (0.5 mL) subcut WEEKLY #2 mL 05/05/22 06/17/22 Rx subcutaneous pen injector (Trulicity) cinnamon bark 500 mg capsule 500 mg PO BID 05/20/22 06/17/22 History (Cinnamon) insulin detemir U-100 100 unit/mL 50 unit subcut HS 05/20/22 06/17/22 History (3 mL) subcutaneous pen (Levemir FlexPen) enoxaparin 30 mg/0.3 mL 30 mg subcut Q12H 06/17/22 06/17/22 History subcutaneous syringe (Lovenox) Laboratory Tests 06/28/22 06/28/22 11:37 11:37 PT 14.0 Seconds Seconds (11.1-14.7) INR 1.1 APTT 25.0 SECONDS SECONDS (22.3-36.8) Sodium 130 mmol/L L mmol/L (137-145) Patient hx anesthesia problems: none Family hx anesthesia problems: none Results Review: All pre-operative results and documents have been reviewed as part of the pre-operative evaluation. PMFSH Past Medical History Medical History Acute non-recurrent maxillary sinusitis Anticoagulated on Coumadin At high risk for falls Ataxia Benign paroxysmal positional vertigo due to bilateral vestibular disorder BMI 30.0-30.9,adult BMI 31.0-31.9,adult Body mass index (bmi) 34.0-34.9, adult (01/02/19) Cellulitis of left foot Chronic anxiety Chronic back pain Chronic bilateral low back pain with bilateral sciatica Chronic depression Chronic neck pain Diabetes mellitus with hyperglycemia, with long-term current use of insulin glucose 241 and hemoglobin A1c 9.5 on 01/08/2021.
[2022-06-28 13:08] LABS: Glucose Point of Care 228 mg/dl (65-105)
--- NOTE | 2022-06-28 13:12 | WPDHPUPDATE1 ---
History and Physical Update Update Date/Time: 06/28/22 13:12 History and Physical has been reviewed, including an updated exam of the patient. There are NO changes in the patient's condition. Risks, benefits, and alternatives have been discussed and questions answered. Patient agrees to proceed with procedure. Proceed with turp
[2022-06-28] MEDS: ceFAZolin 2 GM/D5W 50 ML 2 GM/50 ML BAG IVPB (13:26)
[2022-06-28] MEDS: LIDOCAINE HCL 2% GEL UROJET 10 ML PKG MUCOUS MEM (13:43)
--- NOTE | 2022-06-28 14:41 | W.PM.PROC2 ---
Procedure Note - Detailed Date of Procedure 06/28/22 Pre-op Diagnosis urinary retention Post-op Diagnosis Same Procedure Performed Transurethral resection prostate Surgeon Akbar Sullivan MD Anesthesia General Description of Procedure Patient is taken to the operative suite correctly identified. Once anesthesia was obtained was placed in dorsal lithotomy position prepped and draped usual sterile fashion. Twenty-four [place] resectoscope sheath was inserted the bladder. There were no tumors noted. Patient has a fairly good sized median lobe and lateral lobe hypertrophy. Both ureteral orifices were visualized at all times. We started out by incising the 5 and 7 o'clock position from the bladder neck to the verumontanum. We then resected the lateral lobes from the 6 o'clock position all the way up to 12:00 p.m. bilaterally. Hemostasis was achieved using electrocautery and a rollerball. We then took down the median lobe. Again hemostasis was achieved using a rollerball. All chips were sent for evaluation. There appeared to be fairly good hemostasis at termination of procedure. 2% viscous lidocaine was then inserted into the urethra. Twenty-four [place] [address] was placed with 30 cc in the balloon. This was connected to continuous bladder irrigation. It appeared fairly clear at this time. Patient is taken recovery stable condition. Please send a copy of op note to my office. Estimated Blood Loss 50 Drains Yes Packing No Pathology Yes Complications No immediate complications Condition Stable Disposition PACU
--- NOTE | 2022-06-28 15:13 | SUR.PHASEI ---
Dr. Sosa aware of patient's BG. No further treatment at this time.
[2022-06-28 15:14] LABS: Glucose Point of Care 246 mg/dl (65-105)
--- NOTE | 2022-06-28 15:22 | SUR.PHASEI ---
1518: Simple mask removed.
--- NOTE | 2022-06-28 15:56 | SUR.PHASEI ---
1554: RN tried to call report to floor RN but she has to call back.
--- NOTE | 2022-06-28 16:37 | ADMGEN ---
This patient, Donald Guzman, was admitted to Medical Room 250-01. Patient/family oriented to hospital policies and general routines including ID bracelet, bed and alarms, visiting hours, pain management, procedures, bathroom and other care routines, personal items, smoking policy, room service/diet, and visiting hours. Information on how to activate the Rapid Response Team has been discussed. Patient/Family are encouraged to report perceived risks to care and to ask questions if they do not understand what they are told or what they should do.
--- NOTE | 2022-06-28 17:00 | WPDCN ---
Assessment and Plan Assessment and plan (1) Hyperglycemia: Code(s): R73.9 - Hyperglycemia, unspecified Status: Acute Assessment and Plan: He received fluid with dextrose and a during surgery and his glucose has been over 400 this evening. Continue basal insulin. NovoLog ordered continue to monitor glucose frequently this evening until it is below or around 200. (2) Enlarged prostate: Code(s): N40.0 - Benign prostatic hyperplasia without lower urinary tract symptoms Status: Acute Assessment and Plan: Postoperative day 0 status post transurethral section of the prostate. Management per primary service. 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 Resume once okay with primary service. (4) Type 2 diabetes mellitus: Code(s): E11.9 - Type 2 diabetes mellitus without complications Status: Acute Assessment and Plan: Glucose has been running quite high this evening but it is noted that he received fluid with dextrose in it during surgery. Continue basal insulin and slight as needed. Initiate sliding scale insulin, Accu-Cheks, and hypoglycemic protocol. Check A1c. (5) Obstructive sleep apnea on CPAP: Code(s): G47.33 - Obstructive sleep apnea (adult) (pediatric); Z99.89 - Dependence on other enabling machines and devices Status: Acute Assessment and Plan: CPAP will be provided for the patient to use while hospitalized. Plan Thank you for allowing us to participate in this patient's care. Please do not hesitate to contact us with any questions. HPI Data of Consult Date/Time: 06/28/22 17:00 Requesting Physician: Akbar Sullivan MD Consult Narrative Reason for consult: Medical management. 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 He has been having issues with urinary retention had a transurethral section of the prostate done today per Dr. Sullivan. It looks like he had a pretty uneventful surgery and he is currently on CBI which is draining light red urine. The patient is feeling well and he does not have any significant discomfort. He does remark that he is a bit chilled however he has not had fever or sweats. He has appetite has been good and he is eating without issue. His glucose this evening however has been running quite high though it looks like he received fluid with dextrose and at during surgery. Patient admits that his sugars have been running high for the last several weeks, sometimes in the 200s and 300s. He denies blurry vision, polydipsia, and polyuria. He states compliance with his home insulin. Currently he has no specific complaints. Review of Systems Review of Systems: Twelve systems were reviewed and are negative except for as per HPI. He denies fever and sweats. No recent cold or flu symptoms. 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 He uses CPAP at nighttime. No chest pain or shortness of breath. He denies nausea and vomiting. Except as documented, all other systems were reviewed and are negative. [facility] Past Medical History Medical History (Updated 06/29/22 @ 00:02 by Meagan Mcallister PA-C) Anticoagulated on Coumadin At high risk for falls Benign paroxysmal positional vertigo due to bilateral vestibular disorder Chronic anxiety Chronic back pain Chronic depression Chronic neck pain Diabetes mellitus with hyperglycemia, with long-term current use of insulin Glucose 241 and hemoglobin A1c 9.5 on 01/08/2021. Hemoglobin A1c 10.0 on 05/26/2021. Fasting glucose 194 on 01/17/2022. Male er
[2022-06-28] MEDS: DEXTROSE 5%/LACTATED RINGERS 1,000 ML 125 ML IV CONT (17:43)
[2022-06-28] MEDS: metFORMIN HCL XR 500 MG TAB.SR.24H 2000 MG PO (18:11)
[2022-06-28] MEDS: GABAPENTIN 300 MG CAPSULE 600 MG PO (18:12)
[2022-06-28] MEDS: DOCUSATE SODIUM 100 MG CAPSULE PO (20:42)
[2022-06-28] MEDS: traZODone HCL 50 MG TABLET PO (20:42)
[2022-06-28] MEDS: ceFAZolin 1 GM/NS 50 ML 1 GM/50 ML BAG IVPB (20:43)
[2022-06-28] MEDS: INSULIN GLARGINE (*BKC) 100 UNITS/ML 50 UNITS SUB-Q (20:47)
[2022-06-28 21:03] LABS: Glucose Point of Care 486 mg/dl (65-105)
[2022-06-28] MEDS: INSULIN ASPART (*BKC) 100 UNITS/ML 10 UNITS SUB-Q (21:25)
[2022-06-28 23:43] LABS: Glucose Point of Care 324 mg/dl (65-105)
[2022-06-29] VITALS (8 sets, daily range): BP systolic 95–130; BP diastolic 60–81; PULSE 82–116; RESP 16–20; TEMP 35.9–36.6; O2SAT 92–98
[2022-06-29] MEDS: INSULIN ASPART (*BKC) 100 UNITS/ML SUB-Q ×3 (00:38→17:20)
[2022-06-29 05:37] LABS: INR 1.1; Prothrombin Time 13.7 Seconds (11.1-14.7)
[2022-06-29 05:41] LABS: Alanine Aminotransferase 20 U/L (6-50); Albumin Level 3.6 g/dL (3.5-5.1); Alkaline Phosphatase 95 U/L (38-126); Anion Gap 7 mmol/L (8-16); Aspartate Amino Transferase 18 U/L (17-59); Bilirubin,Total 0.8 mg/dL (0.2-1.3); Blood Urea Nitrogen 14 mg/dL (9-20); Calcium 8.5 mg/dL (8.4-10.2); Carbon Dioxide 30 mmol/L (22-30); Chloride 94 mmol/L (98-107); Estimated CRCL calculation 73 ml/min; Estimated Glomerular Filt Rate > 60; Glucose 132 mg/dL (65-110); Magnesium 2.2 mg/dL (1.6-2.3); Potassium 4.6 mmol/L (3.4-5.0); Sodium 131 mmol/L (137-145)
[2022-06-29 05:42] LABS: Hematocrit 40.2 % (42.0-52.0); Hemoglobin 13.1 g/dL (14.0-18.0); Mean Corpuscular HGB Conc 32.6 g/dl (32-36); Mean Corpuscular Hemoglobin 29.8 pg (26-34); Mean Corpuscular Volume 91.6 fl (80-100); Mean Platelet Volume 10.2 fl (7.4-10.4); Platelet Count Result 236 k/mm3 (150-375); Red Blood Count 4.39 M/mm3 (4.6-6.20); Red Cell Distribution Width 12.5 % (11.5-14.5); White Blood Count 12.7 K/mm3 (4.5-10.0)
[2022-06-29] MEDS: ceFAZolin 1 GM/NS 50 ML 1 GM/50 ML BAG IVPB (05:51)
[2022-06-29 07:09] LABS: Hemoglobin A1C 12.5 % (<5.7)
--- NOTE | 2022-06-29 08:02 | WPDUROPN2 ---
Progress Note: A&P Assessment and Plan (1) Urinary retention: Code(s): R33.9 - Retention of urine, unspecified Status: Acute Assessment and Plan: Postoperative day 1. From transurethral resection of prostate. Doing well overall. Will wean CBI to off and hopefully discharge home with Kuo catheter later today or in a.m.. (2) Hyperglycemia: Code(s): R73.9 - Hyperglycemia, unspecified Status: Acute Assessment and Plan: Appreciate hospitalist input. Patient with long-term poorly controlled diabetes. Discharge pending their recommendations. Subjective Subjective Date/Time Seen: 06/29/22 08:02 Post Op day: 1 Principal diagnosis: Urinary retention Interval history: Doing well at this point time. Urine is clear with minimal CBI. Will have the wean to off tolerable. Patient's blood sugar is better but his hemoglobin A1c shows very poor control at 12.5. Appreciate hospitalist input. Depending on their recommendations possibly discharge home patient later today or at the latest tomorrow depending on amount of hematuria. Review of Systems Review of Systems: All systems reviewed & are unremarkable except as noted in HPI and below Exam Const: General: cooperative and comfortable Resp: Effort & Inspection: normal respiratory effort Cardio: Rate: regular rate Rhythm: regular rhythm Urinary Catheter: Urinary Catheter: patent and draining and urine clear Objective Data Vital Signs Vital Signs: Vital Signs - 24 hr 06/28/22 11:28 06/28/22 14:46 06/28/22 15:00 Temperature 36.4 C 36.4 C Pulse Rate 120 H 85 92 Respiratory Rate 14 14 15 Blood Pressure 87/67 L 117/87 117/87 Pulse Oximetry 94 99 100 Oxygen Delivery Room Air Simple Face Mask Simple Face Mask Oxygen Flow Rate 6 6 06/28/22 15:15 06/28/22 15:30 06/28/22 15:45 Temperature Pulse Rate 91 92 94 Respiratory Rate 12 18 13 Blood Pressure 97/72 L 117/88 115/78 Pulse Oximetry 100 97 95 Oxygen Delivery Simple Face Mask Room Air Room Air Oxygen Flow Rate 6 06/28/22 16:00 06/28/22 17:30 06/28/22 16:30 Temperature 36.6 C Pulse Rate 93 95 Respiratory Rate 18 18 Blood Pressure 126/90 113/70 Pulse Oximetry 95 97 Oxygen Delivery Room Air Oxygen Flow Rate 06/28/22 16:45 06/28/22 17:15 06/28/22 18:15 Temperature 36.6 C 36.3 C L 36.4 C Pulse Rate 90 86 103 H Respiratory Rate 18 18 18 Blood Pressure 113/80 120/78 118/77 Pulse Oximetry 95 98 97 Oxygen Delivery Oxygen Flow Rate 06/28/22 20:50 06/28/22 23:13 06/29/22 01:16 Temperature 36.4 C 36.4 C Pulse Rate 94 87 Respiratory Rate 16 18 16 Blood Pressure 100/81 95/69 L Pulse Oximetry 98 92 Oxygen Delivery Autopap Oxygen Flow Rate 06/28/22 20:00 06/29/22 01:43 06/29/22 05:48 Temperature 36.5 C Pulse Rate 87 82 Respiratory Rate 16 20 16 Blood Pressure 100/68 Pulse Oximetry 92 96 Oxygen Delivery Autopap Autopap Oxygen Flow Rate Intake/Output Intake/Output: Intake & Output 06/26/22 06/27/22 06/28/22 06/29/22 23:59 23:59 23:59 23:59 Intake Total 1310 7250 Output Total 6900 6206 Balance -5590 975 Meds/Results Medications: Active Medications Generic Name Dose Route Start Last Admin Trade Name Freq PRN Reason Stop Dose Admin Hydrocodone Bitart/Acetaminophen 1 tab 06/28/22 16:04 Hydrocodone/Acetaminophen (*Crx) 5-325 Mg Tablet PO Q4H PRN Pain Rated 1-6 Atorvastatin Calcium 20 mg 06/29/22 09:00 Atorvastatin 20 Mg Tablet PO DAILY [facility] Cephalexin HCl 500 mg 06/29/22 09:00 Cephalexin 500 Mg Capsule PO QID [facility] Cyclobenzaprine HCl 10 mg 06/28/22 16:04 Cyclobenzaprine Hcl 10 Mg Tablet PO TID PRN muscle spasm Dextrose 12.5 gm 06/28/22 17:30 Dextrose 50% 25 Gm/50 Ml Syringe IV PUSH PRN PRN Hypoglycemia Protocol Docusate Sodium 100 mg 06/28/22 21:00 06/28/22 20:42 Docusate Sodium 100 Mg Capsule PO 100 mg
[2022-06-29 08:18] LABS: Glucose Point of Care 130 mg/dl (65-105)
[2022-06-29] MEDS: ATORVASTATIN 20 MG TABLET PO (08:33)
[2022-06-29] MEDS: CEPHALEXIN 500 MG CAPSULE PO ×4 (08:33→21:37)
[2022-06-29] MEDS: GABAPENTIN 300 MG CAPSULE 600 MG PO ×3 (08:33→17:19)
[2022-06-29] MEDS: DOCUSATE SODIUM 100 MG CAPSULE PO (08:34)
[2022-06-29] MEDS: ESCITALOPRAM OXALATE 10 MG TABLET 20 MG PO (08:34)
--- NOTE | 2022-06-29 11:45 | PM.IMPN ---
Progress Note: A&P Assessment and Plan (1) Hyperglycemia: Code(s): R73.9 - Hyperglycemia, unspecified Status: Acute Assessment and Plan: Glucose better today at 132 A1c 12.5 Continue home Lantus 50 units discontinued fluids at this time Accu chek AC/HS ISS Trend glucose adjust therapy as indicated (2) Enlarged prostate: Code(s): N40.0 - Benign prostatic hyperplasia without lower urinary tract symptoms Status: Acute Assessment and Plan: Postoperative day 1 status post transurethral section of the prostate Post op care per urology Pain medications on board DVT per urology CBI continued at this time (3) Anticoagulated on Coumadin: Code(s): 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 Consider changing to Xarelto or Eliquis (4) Type 2 diabetes mellitus: Code(s): E11.9 - Type 2 diabetes mellitus without complications Status: Acute Assessment and Plan: Glucose better today at 132 A1c 12.5 Continue home Lantus 50 units discontinued fluids at this time Accu chek AC/HS ISS Trend glucose adjust therapy as indicated (5) Obstructive sleep apnea on CPAP: Code(s): G47.33 - Obstructive sleep apnea (adult) (pediatric); Z99.89 - Dependence on other enabling machines and devices Status: Acute Assessment and Plan: CPAP will be provided for the patient to use while hospitalized. Time Spent With Patient Time: 42 minutes Time with patient: Greater than 35 minutes Subjective Date/time seen: 06/29/22 1145 Interval history: 06/29/22 1145 patient is doing well he denies any current pain. Currently he is denying any chest pain, shortness a breath, nausea, vomiting, diarrhea constipation. Glucose appears to be stable at 132. Patient stable for discharge for the hospitalist side if indicated by Urology. Labs and vital signs remained stable. 06/28/22? 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 He has been having issues with urinary retention had a transurethral section of the prostate done today per Dr. Sullivan. It looks like he had a pretty uneventful surgery and he is currently on CBI which is draining light red urine. The patient is feeling well and he does not have any significant discomfort. He does remark that he is a bit chilled however he has not had fever or sweats. He has appetite has been good and he is eating without issue. His glucose this evening however has been running quite high though it looks like he received fluid with dextrose and at during surgery. Patient admits that his sugars have been running high for the last several weeks, sometimes in the 200s and 300s. He denies blurry vision, polydipsia, and polyuria. He states compliance with his home insulin. Currently he has no specific complaints. Review of Systems Review of Systems: All systems reviewed & are unremarkable except as noted in HPI and below Exam Narrative: General: well-nourished, well-appearing 62-year-old male, sitting up in bed, comfortable, NARD Neuro: awake, alert and oriented x4, speech clear, no focal neuro deficits noted HEENMT: normocephalic, atraumatic, EOMI, sclerae anicteric, moist oral mucosa Respiratory: Clear to auscultation bilaterally without crackles, rhonchi or wheezes, nonlabored breathing Cardio: regular rate, regular rhythm with S1-S2 : CBI present draining a mariel colored urine Abdomen: nondistended, normoactive bowel sounds, soft, nontender to palpation Ex
--- NOTE | 2022-06-29 11:57 | PC.NURSE ---
On 06/29/22, the student, [Katharine Aleman], provided care and completed [facility] documentation on this patient. I have reviewed the student's documentation and agree with the findings.
[2022-06-29 12:03] LABS: Glucose Point of Care 216 mg/dl (65-105)
[2022-06-29 17:06] LABS: Glucose Point of Care 275 mg/dl (65-105)
[2022-06-29] MEDS: metFORMIN HCL XR 500 MG TAB.SR.24H 2000 MG PO (17:19)
[2022-06-29 21:37] LABS: Glucose Point of Care 222 mg/dl (65-105)
[2022-06-29] MEDS: traZODone HCL 50 MG TABLET PO (21:37)
[2022-06-29] MEDS: INSULIN GLARGINE (*BKC) 100 UNITS/ML 50 UNITS SUB-Q (21:37)
[2022-06-30 06:25] VITALS: BP 104/59; PULSE 73; RESP 16; TEMP 36.6; O2SAT 98
[2022-06-30 07:37] LABS: Basophils Absolute Auto 0.1 K/mm3 (0.0-0.1); Basophils Percent Auto 0.5 % (0.2-1.2); Eosinophils Absolute Auto 0.1 K/mm3 (0-0.3); Eosinophils Percent Auto 0.9 % (0-4.4); Hematocrit 39.7 % (42.0-52.0); Hemoglobin 13.1 g/dL (14.0-18.0); Immature Granulocyte Absolute 0.06 K/mm3 (0.00-0.031); Immature Granulocyte Percent A 0.4 % (0-0.5); Lymphocytes Absolute Auto 2.02 K/mm3 (0.9-3.2); Lymphocytes Percent Auto 13.3 % (18.3-44.2); Mean Corpuscular Hemoglobin 29.4 pg (26-34); Mean Corpuscular Volume 89.2 fl (80-100); Mean Platelet Volume 9.8 fl (7.4-10.4); Monocytes Absolute Auto 1.1 K/mm3 (0.1-0.6); Monocytes Percent Auto 7.4 % (2.6-8.5); Neutrophils Absolute Auto 11.8 K/mm3 (1.3-6.7); Neutrophils Percent Auto 77.5 % (45.5-73.1); Platelet Count Result 242 k/mm3 (150-375); Red Blood Count 4.45 M/mm3 (4.6-6.20); Red Cell Distribution Width 12.5 % (11.5-14.5); White Blood Count 15.2 K/mm3 (4.5-10.0)
[2022-06-30 07:47] LABS: Alanine Aminotransferase 21 U/L (6-50); Albumin Level 3.6 g/dL (3.5-5.1); Alkaline Phosphatase 95 U/L (38-126); Anion Gap 3 mmol/L (8-16); Aspartate Amino Transferase 33 U/L (17-59); Bilirubin,Total 0.6 mg/dL (0.2-1.3); Blood Urea Nitrogen 10 mg/dL (9-20); Calcium 8.3 mg/dL (8.4-10.2); Carbon Dioxide 32 mmol/L (22-30); Chloride 97 mmol/L (98-107); Estimated CRCL calculation 81 ml/min; Estimated Glomerular Filt Rate > 60; Glucose 87 mg/dL (65-110); Potassium 3.9 mmol/L (3.4-5.0); Sodium 132 mmol/L (137-145)
[2022-06-30 08:19] VITALS: RESP 16; O2SAT 98
[2022-06-30 08:36] LABS: Glucose Point of Care 81 mg/dl (65-105)
[2022-06-30 08:40] VITALS: BP 102/72; PULSE 102; RESP 18; TEMP 36.2; O2SAT 95
[2022-06-30] MEDS: ATORVASTATIN 20 MG TABLET PO (09:45)
[2022-06-30] MEDS: GABAPENTIN 300 MG CAPSULE 600 MG PO ×3 (09:45→17:03)
[2022-06-30] MEDS: CIPROFLOXACIN 500 MG TAB PO ×2 (09:45→20:53)
[2022-06-30] MEDS: ESCITALOPRAM OXALATE 10 MG TABLET 20 MG PO (09:45)
--- NOTE | 2022-06-30 11:30 | PM.IMPN ---
Progress Note: A&P Assessment and Plan (1) Hyperglycemia: Code(s): R73.9 - Hyperglycemia, unspecified Status: Acute Assessment and Plan: Glucose better today at 81 A1c 12.5 Continue home Lantus 50 units discontinued fluids at this time Accu chek AC/HS ISS Trend glucose adjust therapy as indicated (2) Enlarged prostate: Code(s): N40.0 - Benign prostatic hyperplasia without lower urinary tract symptoms Status: Acute Assessment and Plan: Postoperative day 2 status post transurethral section of the prostate Post op care per urology Pain medications on board DVT per urology CBI continued at this time (3) Anticoagulated on Coumadin: Code(s): Z79.01 - long-term (current) use of anticoagulants Status: Acute Assessment and Plan: Patient is on warfarin for history of recurrent DVTs Resume once okay with primary service. Consider changing to Xarelto or Eliquis (4) Type 2 diabetes mellitus: Code(s): E11.9 - Type 2 diabetes mellitus without complications Status: Acute Assessment and Plan: Glucose better today at 81 A1c 12.5 Continue home Lantus 50 units discontinued fluids at this time Accu chek AC/HS ISS Trend glucose adjust therapy as indicated (5) Obstructive sleep apnea on CPAP: Code(s): G47.33 - Obstructive sleep apnea (adult) (pediatric); Z99.89 - Dependence on other enabling machines and devices Status: Acute Assessment and Plan: CPAP will be provided for the patient to use while hospitalized. Time Spent With Patient Time: 48 minutes Time with patient: Greater than 35 minutes Subjective Date/time seen: 06/30/22 1130 Interval history: 06/30/22 1130 Patient is doing ok. He does not have any hematuria today. He is denying any chest pain, shortness of breath, nausea, vomiting, diarrhea, constipation. He is complaining of weakness, however, he stated that is not new for him. 06/29/22 1145 patient is doing well he denies any current pain. Currently he is denying any chest pain, shortness a breath, nausea, vomiting, diarrhea constipation. Glucose appears to be stable at 132. Patient stable for discharge for the hospitalist side if indicated by Urology. Labs and vital signs remained stable. 06/28/22? 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 He has been having issues with urinary retention had a transurethral section of the prostate done today per Dr. Sullivan. It looks like he had a pretty uneventful surgery and he is currently on CBI which is draining light red urine. The patient is feeling well and he does not have any significant discomfort. He does remark that he is a bit chilled however he has not had fever or sweats. He has appetite has been good and he is eating without issue. His glucose this evening however has been running quite high though it looks like he received fluid with dextrose and at during surgery. Patient admits that his sugars have been running high for the last several weeks, sometimes in the 200s and 300s. He denies blurry vision, polydipsia, and polyuria. He states compliance with his home insulin. Currently he has no specific complaints. Review of Systems Review of Systems: All systems reviewed & are unremarkable except as noted in HPI and below Exam Narrative: General: well-nourished, well-appearing 62-year-old male, sitting up in bed, comfortable, NARD Neuro: awake, alert and oriented x4, speech clear, no focal neuro deficits noted HEENMT: normocephalic, atraumatic, EOMI, sclerae anicteric, moist oral mucosa Respiratory: Maria Del Rosario
--- NOTE | 2022-06-30 12:10 | PC.NURSE ---
On 06/30/22, the student, [Dixie Fountain], provided care and completed [facility] documentation on this patient. I have reviewed the student's documentation and agree with the findings.
[2022-06-30 12:25] LABS: Glucose Point of Care 254 mg/dl (65-105)
--- NOTE | 2022-06-30 12:26 | WPDUROPN2 ---
Progress Note: A&P Assessment and Plan (1) Hyperglycemia: Code(s): R73.9 - Hyperglycemia, unspecified Status: Acute (2) Enlarged prostate: Code(s): N40.0 - Benign prostatic hyperplasia without lower urinary tract symptoms Status: Acute (3) Urinary retention: Code(s): R33.9 - Retention of urine, unspecified Status: Acute Assessment and Plan: Will keep patient one more night. Will repeat CBC tomorrow to ensure WBC decreases after switching antibiotics to Ciprofloxacin from Cephalexin. urine has cleared. Will keep richards in until next week and go home with a leg bag hopefully tomorrow. Subjective Subjective Date/Time Seen: 06/30/22 12:26 POD #1 TURP Patient's urine has cleared to yellow off CBI. Unfortunately, his WBC has increased to 15.2, and glucose is still not greatly controlled at 222. He will stop Cephalexin and start Ciprofloxacin instead. He is anxious to go home, but is comfortable and tolerating diet and activity well. He is afebrile. Post Op day: 2 Review of Systems Cardiovascular: Cardiovascular: Denies chest pain Gastrointestinal: Gastrointestinal: Denies abdominal pain, Denies nausea and Denies vomiting Exam Const: General: cooperative Resp: Effort & Inspection: normal respiratory effort Cardio: Rate: regular rate GI: GI Palp: Yes Soft to palpation and No Tenderness to palpation present (GI) : General: Yes no CVA tenderness Urinary Catheter: Urinary Catheter: patent and draining and urine clear Extrem: Right lower extremity: no edema Left lower extremity: no edema Objective Data Vital Signs Vital Signs: Vital Signs - 24 hr 06/29/22 14:26 06/29/22 18:39 06/29/22 20:43 Temperature 97.8 F 96.7 F L 97.6 F Pulse Rate 116 H 92 92 Respiratory Rate 18 16 16 Blood Pressure 107/70 101/67 98/60 L Pulse Oximetry 93 98 95 Oxygen Delivery 06/29/22 21:24 06/30/22 06:25 06/30/22 08:19 Temperature 97.8 F Pulse Rate 73 Respiratory Rate 16 16 Blood Pressure 104/59 L Pulse Oximetry 98 98 Oxygen Delivery Room Air Room Air 06/30/22 08:40 06/30/22 11:17 Temperature 97.2 F L Pulse Rate 102 H Respiratory Rate 18 Blood Pressure 102/72 Pulse Oximetry 95 Oxygen Delivery Room Air Intake/Output Intake/Output: Intake & Output 06/27/22 06/28/22 06/29/22 06/30/22 23:59 23:59 23:59 23:59 Intake Total 1310 8960 1540 Output Total 4281 5683 1816 Balance -5329 6083 -489 Meds/Results Medications: Active Medications Generic Name Dose Route Start Last Admin Trade Name Freq PRN Reason Stop Dose Admin Hydrocodone Bitart/Acetaminophen 1 tab 06/28/22 16:04 Hydrocodone/Acetaminophen (*Crx) 5-325 Mg Tablet PO Q4H PRN Pain Rated 1-6 Atorvastatin Calcium 20 mg 06/29/22 09:00 06/30/22 09:45 Atorvastatin 20 Mg Tablet PO 20 mg DAILY [facility] Administration Ciprofloxacin 500 mg 06/30/22 09:00 06/30/22 09:45 Ciprofloxacin 500 Mg Tab PO 500 mg Q12HR [facility] Administration Cyclobenzaprine HCl 10 mg 06/28/22 16:04 Cyclobenzaprine Hcl 10 Mg Tablet PO TID PRN muscle spasm Dextrose 12.5 gm 06/28/22 17:30 Dextrose 50% 25 Gm/50 Ml Syringe IV PUSH PRN PRN Hypoglycemia Protocol Docusate Sodium 100 mg 06/28/22 21:00 06/30/22 09:47 Docusate Sodium 100 Mg Capsule PO Not Given Q12HR [facility] Escitalopram Oxalate 20 mg 06/29/22 09:00 06/30/22 09:45 Escitalopram Oxalate 10 Mg Tablet PO 20 mg DAILY [facility] Administration Gabapentin 600 mg 06/28/22 17:00 06/30/22 09:45 Gabapentin 300 Mg Capsule PO 600 mg TID [facility] Administration Glucagon 1 mg 06/28/22 17:30 Glucagon For Inj 1 Mg Vial IM PRN PRN Hypoglycemia Protocol Glucose 15 gm 06/28/22 17:30 Glucose Oral Gel 15 Gm Of Glucse In 37.5 Gm Tube PO PRN PRN Hypoglycemia Protocol Hyoscyamine 0.125 mg 06/28/22 16:04 Hyoscyamine Sulfate 0.125 Mg Tablet
[2022-06-30] MEDS: INSULIN ASPART (*BKC) 100 UNITS/ML SUB-Q (12:44)
[2022-06-30 13:25] VITALS: BP 103/71; PULSE 106; RESP 20; TEMP 36.7; O2SAT 95
[2022-06-30] MEDS: metFORMIN HCL XR 500 MG TAB.SR.24H 2000 MG PO (17:02)
[2022-06-30 17:04] LABS: Glucose Point of Care 179 mg/dl (65-105)
[2022-06-30 19:46] VITALS: RESP 18
[2022-06-30] MEDS: INSULIN GLARGINE (*BKC) 100 UNITS/ML 50 UNITS SUB-Q (20:53)
[2022-06-30] MEDS: traZODone HCL 50 MG TABLET PO (20:53)
[2022-06-30 21:12] LABS: Glucose Point of Care 170 mg/dl (65-105)
[2022-06-30 21:28] VITALS: BP 112/76; PULSE 100; RESP 16; TEMP 36.9; O2SAT 95
[2022-07-01 06:03] VITALS: BP 107/69; PULSE 94; RESP 16; TEMP 36.5; O2SAT 96
[2022-07-01 06:43] LABS: Hematocrit 38.6 % (42.0-52.0); Hemoglobin 12.5 g/dL (14.0-18.0); Mean Corpuscular HGB Conc 32.4 g/dl (32-36); Mean Corpuscular Hemoglobin 29.1 pg (26-34); Mean Platelet Volume 9.7 fl (7.4-10.4); Platelet Count Result 241 k/mm3 (150-375); Red Blood Count 4.29 M/mm3 (4.6-6.20); Red Cell Distribution Width 12.5 % (11.5-14.5); White Blood Count 12.7 K/mm3 (4.5-10.0)
[2022-07-01 07:00] LABS: Alanine Aminotransferase 22 U/L (6-50); Albumin Level 3.5 g/dL (3.5-5.1); Alkaline Phosphatase 90 U/L (38-126); Anion Gap 3 mmol/L (8-16); Aspartate Amino Transferase 48 U/L (17-59); Bilirubin,Total 0.5 mg/dL (0.2-1.3); Blood Urea Nitrogen 9 mg/dL (9-20); Calcium 8.6 mg/dL (8.4-10.2); Carbon Dioxide 34 mmol/L (22-30); Chloride 95 mmol/L (98-107); Estimated CRCL calculation 81 ml/min; Estimated Glomerular Filt Rate > 60; Glucose 204 mg/dL (65-110); Magnesium 1.8 mg/dL (1.6-2.3); Potassium 4.4 mmol/L (3.4-5.0); Sodium 132 mmol/L (137-145)
[2022-07-01 08:27] LABS: Glucose Point of Care 197 mg/dl (65-105)
[2022-07-01] MEDS: ATORVASTATIN 20 MG TABLET PO (08:37)
[2022-07-01] MEDS: GABAPENTIN 300 MG CAPSULE 600 MG PO ×2 (08:37→12:33)
[2022-07-01] MEDS: CIPROFLOXACIN 500 MG TAB PO (08:37)
[2022-07-01 08:38] VITALS: RESP 16; O2SAT 96
[2022-07-01] MEDS: ESCITALOPRAM OXALATE 10 MG TABLET 20 MG PO (08:38)
--- NOTE | 2022-07-01 11:45 | PM.IMPN ---
Progress Note: A&P Assessment and Plan (1) Hyperglycemia: Code(s): R73.9 - Hyperglycemia, unspecified Status: Acute Assessment and Plan: Glucose better today at 204 A1c 12.5 Continue home Lantus 50 units discontinued fluids at this time Accu chek AC/HS ISS Trend glucose adjust therapy as indicated (2) Enlarged prostate: Code(s): N40.0 - Benign prostatic hyperplasia without lower urinary tract symptoms Status: Acute Assessment and Plan: Postoperative day 3 status post transurethral section of the prostate Post op care per urology Pain medications on board DVT per urology CBI continued at this time (3) Anticoagulated on Coumadin: Code(s): 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 Consider changing to Xarelto or Eliquis (4) Type 2 diabetes mellitus: Code(s): E11.9 - Type 2 diabetes mellitus without complications Status: Acute Assessment and Plan: Glucose better today at 204 A1c 12.5 Continue home Lantus 50 units discontinued fluids at this time Accu chek AC/HS ISS Trend glucose adjust therapy as indicated (5) Obstructive sleep apnea on CPAP: Code(s): G47.33 - Obstructive sleep apnea (adult) (pediatric); Z99.89 - Dependence on other enabling machines and devices Status: Acute Assessment and Plan: CPAP will be provided for the patient to use while hospitalized. Time Spent With Patient Time: 48 minutes Subjective Date/time seen: 07/01/22 1145 Interval history: 07/01/22 1145 patient is lying in bed. Patient is adamant about wanting to be discharged. Spoke with Urology and the plan is to discharge the patient. It was reported that he had some lightheadedness however he states that he did have lightheadedness that he had leaned against the wall to help the nurse get the pole by. At any point the patient does have issues with weakness at baseline. He also has baseline dizziness as he is on meclizine. He currently denies any chest pain, shortness a breath, nausea, vomiting, diarrhea constipation. Patient is stable for discharge from the hospitalist standpoint. 06/30/22 1130 Patient is doing ok. He does not have any hematuria today. He is denying any chest pain, shortness of breath, nausea, vomiting, diarrhea, constipation. He is complaining of weakness, however, he stated that is not new for him. 06/29/22 1145 patient is doing well he denies any current pain. Currently he is denying any chest pain, shortness a breath, nausea, vomiting, diarrhea constipation. Glucose appears to be stable at 132. Patient stable for discharge for the hospitalist side if indicated by Urology. Labs and vital signs remained stable. 06/28/22? 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 He has been having issues with urinary retention had a transurethral section of the prostate done today per Dr. Sullivan. It looks like he had a pretty uneventful surgery and he is currently on CBI which is draining light red urine. The patient is feeling well and he does not have any significant discomfort. He does remark that he is a bit chilled however he has not had fever or sweats. He has appetite has been good and he is eating without issue. His glucose this evening however has been running quite high though it looks like he received fluid with dextrose and at during surgery. Patient admits that his sugars have been running high for the last several weeks, dontae
[2022-07-01 12:08] LABS: Glucose Point of Care 155 mg/dl (65-105)
--- NOTE | 2022-07-01 13:10 | WPDUROPN2 ---
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 Teach richards cath care and use. (2) Urinary retention: Code(s): R33.9 - Retention of urine, unspecified Status: Acute Subjective Subjective Date/Time Seen: 07/01/22 13:10 POD #2 TURP Patient doing much better, urine clear off CBI. WBC is improved to 12.7, creatinine 0.90. Post Op day: 2 Review of Systems Cardiovascular: Cardiovascular: Denies chest pain Respiratory: Respiratory: Reports no additional respiratory complaints Gastrointestinal: Gastrointestinal: Denies abdominal pain, Denies nausea and Denies vomiting Genitourinary: Genitourinary: Denies hematuria Exam Const: General: cooperative Resp: Effort & Inspection: normal respiratory effort Cardio: Rate: regular rate GI: GI Palp: Yes Soft to palpation and No Tenderness to palpation present (GI) : General: Yes no CVA tenderness Urinary Catheter: Urinary Catheter: patent and draining and urine clear Extrem: Right lower extremity: no edema Left lower extremity: no edema Objective Data Vital Signs Vital Signs: Vital Signs - 24 hr 06/30/22 13:25 06/30/22 19:46 06/30/22 21:28 Temperature 98.1 F 98.4 F Pulse Rate 106 H 100 Respiratory Rate 20 18 16 Blood Pressure 103/71 112/76 Pulse Oximetry 95 95 Oxygen Delivery Autopap 06/30/22 20:40 07/01/22 06:03 07/01/22 08:38 Temperature 97.7 F Pulse Rate 94 Respiratory Rate 16 16 Blood Pressure 107/69 Pulse Oximetry 96 96 Oxygen Delivery Room Air Room Air Intake/Output Intake/Output: Intake & Output 06/28/22 06/29/22 06/30/22 07/01/22 23:59 23:59 23:59 23:59 Intake Total 1310 8960 3670 2180 Output Total 7921 2311 1039 7981 Balance -5590 9471 -5549 -1758 Meds/Results Medications: Active Medications Generic Name Dose Route Start Last Admin Trade Name Freq PRN Reason Stop Dose Admin Hydrocodone Bitart/Acetaminophen 1 tab 06/28/22 16:04 Hydrocodone/Acetaminophen (*Crx) 5-325 Mg Tablet PO Q4H PRN Pain Rated 1-6 Atorvastatin Calcium 20 mg 06/29/22 09:00 07/01/22 08:37 Atorvastatin 20 Mg Tablet PO 20 mg DAILY [facility] Administration Ciprofloxacin 500 mg 06/30/22 09:00 07/01/22 08:37 Ciprofloxacin 500 Mg Tab PO 500 mg Q12HR [facility] Administration Cyclobenzaprine HCl 10 mg 06/28/22 16:04 Cyclobenzaprine Hcl 10 Mg Tablet PO TID PRN muscle spasm Dextrose 12.5 gm 06/28/22 17:30 Dextrose 50% 25 Gm/50 Ml Syringe IV PUSH PRN PRN Hypoglycemia Protocol Docusate Sodium 100 mg 06/28/22 21:00 07/01/22 08:37 Docusate Sodium 100 Mg Capsule PO Not Given Q12HR [facility] Escitalopram Oxalate 20 mg 06/29/22 09:00 07/01/22 08:38 Escitalopram Oxalate 10 Mg Tablet PO 20 mg DAILY [facility] Administration Gabapentin 600 mg 06/28/22 17:00 07/01/22 12:33 Gabapentin 300 Mg Capsule PO 600 mg TID [facility] Administration Glucagon 1 mg 06/28/22 17:30 Glucagon For Inj 1 Mg Vial IM PRN PRN Hypoglycemia Protocol Glucose 15 gm 06/28/22 17:30 Glucose Oral Gel 15 Gm Of Glucse In 37.5 Gm Tube PO PRN PRN Hypoglycemia Protocol Hyoscyamine 0.125 mg 06/28/22 16:04 Hyoscyamine Sulfate 0.125 Mg Tablet SUBLINGUAL Q6H PRN Bladder Spasm Insulin Aspart 2 - 5 units 06/29/22 08:00 07/01/22 12:11 Insulin Aspart (*Bkc) 100 Units/Ml SUB-Q Not Given TIDWM [facility] Protocol Insulin Glargine 50 units 06/28/22 21:00 06/30/22 20:53 Insulin Glargine (*Bkc) 100 Units/Ml SUB-Q 07/28/22 20:59 50 units HS [facility] Administration Meclizine HCl 25 mg 06/28/22 16:04 Meclizine Hcl 25 Mg Tablet PO DAILY PRN Dizziness Me
--- NOTE | 2022-07-01 13:33 | PM.DS ---
DS: Admitting Diagnosis Discharge Date 07/01/22 Admitting Diagnosis BPH DS: Discharge Diagnosis Discharge Diagnosis Plan BPH DS: Summary Hospital Course Reason for hospitalization: TURP Hospital Course: The patient underwent a Transurethral Resection of the Prostate with Dr. Sullivan on 06/28/22. He tolerated the procedure well and went to recovery in stable condition. He was then transferred to the floor for observation overnight. The following day, his urine remained bloody off CBI, therefore CBI was restarted and he was kept overnight again in an attempt to clear his urine. On, 06/30/22, his WBC unfortunately mariel to 15, but his urine did clear off CBI after weaning. His antibiotics were changed from Cephalexin to Ciprofloxacin and his WBC is now trending down to 12.7. He is afebrile and doing well. He will go home today with all home meds including Ciprofloxacin which is sensitive to both E-Coli and Klebsiella growing on his 06/17/22 culture. He was also changed from Warfarin to Xarelto for outpatient management of his DVT. His blood glucose was managed by the hospitalist and he will continue daily AccuCheck and insulin and follow up with his primary care physician to ensure he is complaint with his diabetic care. He should resume a diabetic diet and activity as tolerated, no lifting or straining >20lbs. Time spent discussing smoking cessation with patient: more than 10 minutes Status at Discharge Functional status at discharge: uses cane/walker Overall status at discharge: patient is back to baseline Time Spent with Patient Time attestation: Total time spent providing and/or coordinating discharge services: Time spent: Greater than 30 minutes Exam Const: General: cooperative Resp: Effort & Inspection: normal respiratory effort Cardio: Rate: regular rate GI: GI Palp: Yes Soft to palpation and No Tenderness to palpation present (GI) : General: Yes no CVA tenderness Urinary Catheter: Urinary Catheter: patent and draining and urine clear Extrem: Right lower extremity: no edema Left lower extremity: no edema DS: Data Data Completed and Pending Completed studies during hospitalization: Pending at discharge 06/28/22 14:26 Surgical [PTH] Routine Labs on day of discharge: Labs from last 24 hours 07/01/22 07/01/22 07/01/22 12:06 08:23 06:23 WBC RBC Hgb Hct MCV MCH MCHC RDW Plt Count MPV Sodium 132 L Potassium 4.4 Chloride 95 L Carbon Dioxide 34 H Anion Gap 3 L BUN 9 Creatinine 0.90 Estim Creat Clear Calc 81 Estimated GFR > 60 Glucose 204 H POC Capillary Glucose 155 H 197 H Calcium 8.6 Magnesium 1.8 Total Bilirubin 0.5 AST 48 ALT 22 Alkaline Phosphatase 90 Total Protein 6.0 L Albumin 3.5 07/01/22 06/30/22 06/30/22 06:23 20:50 17:01 WBC 12.7 H RBC 4.29 L Hgb 12.5 L Hct 38.6 L MCV 90.0 MCH 29.1 MCHC 32.4 RDW 12.5 Plt Count 241 MPV 9.7 Sodium Potassium Chloride Carbon Dioxide Anion Gap BUN Creatinine Estim Creat Clear Calc Estimated GFR Glucose POC Capillary Glucose 170 H 179 H Calcium Magnesium Total Bilirubin AST ALT Alkaline Phosphatase Total Protein Albumin Discharge Plan Discharge Attending physician on discharge: Akbar Sullivan Consulting providers: Meagan Mcallister Discharging Clinician: Beronica Vickers Patient Disposition: Home, Self-Care Activity: may shower Diet: diabetic Discharge Instructions: Urology instructions Call the office or go to the ER if your catheter becomes grossly bloody, with clots or is not draining, you develop a fever, or severe abdominal pain. You will follow up on 07/06/[address] Sullivan at 10am. Clean your penis and catheter tubing daily with soap and water to prevent infection. NO straining, or heavy lifting >20lbs until
== END 2022-07-01 14:05 | disposition home or self-care (01) ==
LOC: ANHSURGERY 16:18 → ANH2MED 16:18
PROVIDERS: Anesthesiology; Nurse Practitioner; Nurse Practitioner Adult Health; Physician Assistant; Admitting Provider Urology; Visit Provider Urology
PROC: 0VT08ZZ Resection of Prostate, Via Natural or Artificial Opening Endoscopic (ICD-10-PCS; CPT 52601; principal; 2022-06-28 13:00)
DX: N40.0 Benign prostatic hyperplasia without lower urinary tract symptoms (principal); R33.9 Retention of urine, unspecified; E11.65 Type 2 diabetes mellitus with hyperglycemia; G47.33 Obstructive sleep apnea (adult) (pediatric); E78.5 Hyperlipidemia, unspecified; F41.9 Anxiety disorder, unspecified; F32.A Depression, unspecified; E78.2 Mixed hyperlipidemia; H81.10 Benign paroxysmal vertigo, unspecified ear; Z99.89 Dependence on other enabling machines and devices; F10.90 Alcohol use, unspecified, uncomplicated; Z87.891 Personal history of nicotine dependence; Z86.718 Personal history of other venous thrombosis and embolism; Z87.820 Personal history of traumatic brain injury; Z79.01 Long term (current) use of anticoagulants; Z83.3 Family history of diabetes mellitus; Z82.49 Family history of ischemic heart disease and other diseases of the circulatory system
CPT/HCPCS: 52601; 36415; 80048; 80053; 80076; 82948; 83036; 83735; 84295; 85025; 85027; 85610; 85730; 88305; A9270; G0378; J0690; J1100; J1815; J2250; J2405; J2704; J3010; J7120; J7121

== ENCOUNTER 2022-09-22 12:36 | Observation (INO) | payer MEDICARE, SELFPAY ==
[2022-09-22] VITALS (18 sets, daily range): BP systolic 74–147; BP diastolic 34–89; PULSE 69–108; RESP 14–21; TEMP 36.3–36.8; O2SAT 94–100
--- NOTE | ~2022-09-22 | XR_ITS ---
EXAMINATION: XR chest 1V portable INDICATION: Hypotension and weakness TECHNIQUE: Portable AP chest at 1347 hours COMPARISON: 06/19/2009 FINDINGS: There are minimal airspace opacities of the mid and lower lung zones. No pleural effusion o r pneumothorax. The cardiomediastinal silhouette is normal. There are partially imaged changes of fus ion procedure in the lower cervical spine. Healed left-sided rib fractures are noted. IMPRESSION: 1. Minimal airspace opacities of the mid and lower lung zones, likely atelectasis. Reviewed, dictated and finalized at location L. IMPRESSION: 1. Minimal airspace opacities of the mid and lower lung zones, likely atelectas is.
--- NOTE | ~2022-09-22 | US_ITS ---
Procedure: Duplex Doppler examination of the bilateral carotids. Indication: Dizziness, syncope Technique: Real time, color-flow and pulse wave Doppler examination of the bilateral carotids was performed. Findings: Ambrose scale ultrasonography of the right neck demonstrated no significant plaque. There was demonstrat ion of normal color-flow and Doppler waveforms within the right common, internal and external carotid arteries. The peak systolic velocities in the right common, internal and external carotid arteries w ere demonstrated to be 103 cm/sec, 65 cm/sec and 81 cm/sec respectively. The right ICA/CCA ratio was 0.6.The proximal right internal carotid artery demonstrates 0% stenosis relative to the normal distal artery lumen diameter. Ambrose scale sonography of the left neck demonstrated no significant plaque. There was demonstration of normal color-flow and wave forms within the left common, internal and external carotid arteries. The peak systolic velocities in the left common, internal and external carotid arteries were demonstrate d to be 113cm/sec, 67 cm/sec and 102 cm/sec respectively. The left ICA/CCA ratio was 0.6. The proxima l left internal carotid artery demonstrates 0% stenosis relative to the normal distal artery lumen di ameter. There was antegrade flow demonstrated in the bilateral vertebral arteries. Impression: No hemodynamically significant stenosis of the bilateral internal carotid arteries. Antegrade flow in the bilateral vertebral arteries. Note: The methodology used is an indirect measurement validated against a direct method (such as the NASCET criteria) that compares diameters at the stenosis to the distal ICA. Reviewed, dictated and finalized at location . Impression: No hemodynamically significant stenosis of the bilateral internal carotid arter ies. Antegrade flow in the bilateral vertebral arteries. Note: The methodology used is an indirect measurement validated against a direct meth od (such as the NASCET criteria) that compares diameters at the stenosis to the distal ICA.
--- NOTE | ~2022-09-22 | CT_ITS ---
Non-contrast Head CT History: Dizziness, syncope COMPARISON: 11/05/2011 Technique: Axial non-contrast imaging of the brain was performed. Dose reduction technique was used on this scan by utilizing automated exposure control and iterative reconstruction technique. The dose -length product (DLP) was 681.00 mGy-cm. Findings: There is no evidence of intracranial hemorrhage, mass lesion, or acute infarct. Brain par enchyma appears normal. The ventricles and subarachnoid spaces are normal in size. The calvarium ap pears normal. The visualized paranasal sinuses and mastoid air cells are clear. Impression: No significant abnormality seen. Reviewed, dictated and finalized at location . Impression: No significant abnormality seen.
--- NOTE | ~2022-09-22 | CT_ITS ---
EXAMINATION: CTA chest PE protocol DATE: 09/23/2022 08:57 INDICATION: Transient alteration of awareness TECHNIQUE: Computed tomography angiography (CTA) of the chest was performed with 100 mL Omnipaque-350 intravenous contrast timed to evaluate the pulmonary arteries. Coronal maximum intensity projection 3D-reconstructions were created by the technologist. The dose-length product (DLP) was 709.53 mGy-cm. Automated exposure control and iterative reconstruction technique were employed. COMPARISON: 07/02/2006 FINDINGS: The pulmonary arteries are well-opacified. No pulmonary embolism is identified. There is mi ld dependent atelectasis of the lower lobes. No pleural effusion or pneumothorax. No pathologically e nlarged thoracic lymph nodes are identified. The heart size is normal. Cholelithiasis is noted. There are partially imaged changes of anterior fusion procedure in the lower cervical spine. IMPRESSION: 1. No pulmonary embolus. 2. Mild atelectasis. Reviewed, dictated and finalized at location B.
--- NOTE | 2022-09-22 12:42 | ECG_ITS ---
Measurements Intervals [place] Rate: 80 P: 51 GA: 177 QRS: 25 QRSD: 91 T: 31 QT: 363 QTc: 419 Interpretive Statements SINUS RHYTHM BASELINE WANDER- V4 NORMAL ECG COMPARED TO ECG 05/25/2022 07:44:49 SINUS RHYTHM NOW PRESENT Electronically Signed On 09-22-2022 12:57:28 CDT by Eduardo Weber D.O.
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
[2022-09-22 13:03] LABS: Basophils Percent Auto 0.6 % (0.2-1.2); Eosinophils Absolute Auto 0.3 K/mm3 (0-0.3); Eosinophils Percent Auto 3.7 % (0-4.4); Hematocrit 38.4 % (42.0-52.0); Hemoglobin 12.4 g/dL (14.0-18.0); Immature Granulocyte Absolute 0.02 K/mm3 (0.00-0.031); Immature Granulocyte Percent A 0.3 % (0-0.5); Lymphocytes Absolute Auto 1.62 K/mm3 (0.9-3.2); Lymphocytes Percent Auto 24.3 % (18.3-44.2); Mean Corpuscular HGB Conc 32.3 g/dl (32-36); Mean Corpuscular Hemoglobin 28.8 pg (26-34); Mean Corpuscular Volume 89.3 fl (80-100); Mean Platelet Volume 9.7 fl (7.4-10.4); Monocytes Absolute Auto 0.5 K/mm3 (0.1-0.6); Monocytes Percent Auto 7.5 % (2.6-8.5); Neutrophils Absolute Auto 4.2 K/mm3 (1.3-6.7); Neutrophils Percent Auto 63.6 % (45.5-73.1); Platelet Count Result 229 k/mm3 (150-375); Red Cell Distribution Width 14.1 % (11.5-14.5); White Blood Count 6.7 K/mm3 (4.5-10.0)
[2022-09-22] MEDS: LACTATED RINGERS 1,000 ML 999 ML IV CONT ×2 (13:10→14:18)
[2022-09-22 13:21] LABS: Alanine Aminotransferase 27 U/L (6-50); Albumin Level 3.5 g/dL (3.5-5.1); Alkaline Phosphatase 82 U/L (38-126); Anion Gap 6 mmol/L (8-16); Aspartate Amino Transferase 28 U/L (17-59); Bilirubin,Total 0.4 mg/dL (0.2-1.3); Blood Urea Nitrogen 18 mg/dL (9-20); Calcium 8.4 mg/dL (8.4-10.2); Carbon Dioxide 25 mmol/L (22-30); Chloride 103 mmol/L (98-107); Estimated CRCL calculation 82 ml/min; Estimated Glomerular Filt Rate > 60; Glucose 179 mg/dL (65-110); Potassium 4.5 mmol/L (3.4-5.0); Sodium 134 mmol/L (137-145)
[2022-09-22 14:03] LABS: Lipase 152 U/L (23-300)
[2022-09-22 14:16] LABS: Troponin I < 0.012 ng/mL (0.000-0.034)
[2022-09-22 14:18] LABS: Appearance Urine Turbid (Clear); Bilirubin Urine Negative (Negative); Blood Urine 2+ (Negative); Color Urine Dark Yellow (Yellow); Glucose Urine UA 2+ mg/dL (Negative); Ketones Urine Trace mg/dL (Negative); Leukocyte Esterase Ur 3+ LEU/UL (Negative); Nitrate Urine Negative (Negative); Protein Urine 2+ mg/dL (Negative); Specific Grav Ur 1.017 (1.001-1.035); Urobilinogen Urine 0.2 mg/dL (<2.0); pH Urine 5.5 (5.0-9.0)
[2022-09-22 14:33] LABS: Lactic Acid Reflex 2.2 mmol/L (0.7-2.0)
[2022-09-22 14:54] LABS: Add Urine Microscopic? YES
[2022-09-22 14:55] LABS: RBC Urine >100 /hpf (0-2); WBC Urine >100 /hpf
[2022-09-22 16:48] LABS: Troponin I < 0.012 ng/mL (0.000-0.034)
--- NOTE | 2022-09-22 16:56 | PC.NURSE ---
This patient, Donald Guzman, was admitted to IMU Room 231-01. Patient/family oriented to hospital policies and general routines including ID bracelet, bed and alarms, visiting hours, pain management, procedures, bathroom and other care routines, personal items, smoking policy, room service/diet, and visiting hours. Information on how to activate the Rapid Response Team has been discussed. Patient/Family are encouraged to report perceived risks to care and to ask questions if they do not understand what they are told or what they should do.
[2022-09-22 17:16] LABS: Glucose Point of Care 163 mg/dl (65-105)
[2022-09-22 17:21] LABS: Reflex Lactic Acid Yes or No Add Lactic
[2022-09-22 18:14] LABS: Lactic Acid 1.4 mmol/L (0.7-2.0)
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
[2022-09-22 20:31] LABS: Glucose Point of Care 119 mg/dl (65-105)
[2022-09-22] MEDS: TAMSULOSIN HCL 0.4 MG CAPSULE PO (20:31)
[2022-09-22] MEDS: GABAPENTIN 300 MG CAPSULE 600 MG PO (20:31)
[2022-09-22] MEDS: traZODone HCL 50 MG TABLET PO (20:32)
[2022-09-22] MEDS: INSULIN GLARGINE (*BKC) 100 UNITS/ML 20 UNITS SUB-Q (20:32)
[2022-09-22] MEDS: RIVAROXABAN 20 MG TABLET PO (20:32)
[2022-09-23] VITALS (18 sets, daily range): BP systolic 108–143; BP diastolic 65–88; PULSE 74–104; RESP 12–28; TEMP 35.9–36.9; O2SAT 94–100
--- NOTE | 2022-09-23 | ECHO_ITS ---
Patient Info Name: Donald Guzman Age: 62 years : 1960 Gender: Male Ht: 72 in Wt: 220 lbs BSA: 2.27 m2 HR: 77 bpm BP: 108 / 67 mmHg Heart Rhythm: Sinus Rhythm Technical Quality: Good Exam Date: 09/23/2022 10:47 AM Exam Location: [facility] Pulmonary Patient Status: Outpatient Admit Date: 09/22/2022 Staff Ordering Physician: Roseann Olivares NP Junior Php Developer: Karon Piedra RDCS Attending Provider: Majo He DO Referring Physician: Marshall HANLEY; Exam Type: CA echo doppler color flow Study Info Indications - syncope Complete two-dimensional, color flow and Doppler transthoracic echocardiogram is performed. Summary 1. Complete two-dimensional, color flow and Doppler transthoracic echocardiogram is performed. 2. Normal left and right ventricular size and systolic function. 3. Borderline left atrial enlargement. 4. Mild MR. Left Ventricle Left ventricular chamber dimension is normal. Left ventricular systolic function is normal, estimated at 60-65%. The left ventricular diastolic function is normal. Right Ventricle Right ventricular chamber dimension is normal. Left Atria Left atrial chamber dimension is mildly enlarged. Right Atria Right atrial chamber dimension is normal. Aortic Valve The aortic valve is normal. Pulmonic Valve The pulmonic valve is normal. Mitral Valve The mitral valve has normal leaflets. There is mild mitral valve regurgitation. Tricuspid Valve The tricuspid valve leaflets are normal. Pericardium/Pleural The pericardium appears normal. Aorta The aortic root size at the sinus of Valsalva is normal. Left Ventricular Outflow Tract Name Value Normal LVOT 2D LVOT Diameter 2.2 cm LVOT Doppler LVOT Peak Gradient 3 mmHg LVOT Mean Gradient 1 mmHg LVOT VTI 17 cm LVOT VTI/AV VTI Ratio 0.7 LVOT Stroke Volume 63 ml LVOT CO 4.8 l/min LVOT CI 2.1 l/min/m2 Pulmonic Valve Name Value Normal RVOT Doppler RVOT Peak Gradient 1 mmHg PV Doppler PV Peak Gradient 2 mmHg Mitral Valve Name Value Normal MV Doppler MV Decel [place] 283 cm/s2 MV PHT 67 ms MV Area (PHT) 3.3 cm2 4.0-5.0 MV Diastolic Function MV E Peak Velocity 65 cm/s MV A
[2022-09-23 05:10] LABS: Basophils Absolute Auto 0.1 K/mm3 (0.0-0.1); Basophils Percent Auto 0.7 % (0.2-1.2); Eosinophils Absolute Auto 0.3 K/mm3 (0-0.3); Eosinophils Percent Auto 4.5 % (0-4.4); Hematocrit 37.5 % (42.0-52.0); Hemoglobin 12.1 g/dL (14.0-18.0); Immature Granulocyte Absolute 0.03 K/mm3 (0.00-0.031); Immature Granulocyte Percent A 0.4 % (0-0.5); Lymphocytes Absolute Auto 1.63 K/mm3 (0.9-3.2); Lymphocytes Percent Auto 23.8 % (18.3-44.2); Mean Corpuscular HGB Conc 32.3 g/dl (32-36); Mean Corpuscular Hemoglobin 28.7 pg (26-34); Mean Corpuscular Volume 88.9 fl (80-100); Mean Platelet Volume 9.5 fl (7.4-10.4); Monocytes Absolute Auto 0.5 K/mm3 (0.1-0.6); Monocytes Percent Auto 7.2 % (2.6-8.5); Neutrophils Absolute Auto 4.3 K/mm3 (1.3-6.7); Neutrophils Percent Auto 63.4 % (45.5-73.1); Platelet Count Result 220 k/mm3 (150-375); Red Blood Count 4.22 M/mm3 (4.6-6.20); White Blood Count 6.9 K/mm3 (4.5-10.0)
[2022-09-23 05:21] LABS: Lactic Acid Reflex 0.9 mmol/L (0.7-2.0)
[2022-09-23 05:23] LABS: Alanine Aminotransferase 24 U/L (6-50); Albumin Level 3.4 g/dL (3.5-5.1); Alkaline Phosphatase 86 U/L (38-126); Anion Gap 3 mmol/L (8-16); Aspartate Amino Transferase 21 U/L (17-59); Bilirubin,Total 0.5 mg/dL (0.2-1.3); Blood Urea Nitrogen 14 mg/dL (9-20); Calcium 8.4 mg/dL (8.4-10.2); Carbon Dioxide 26 mmol/L (22-30); Chloride 107 mmol/L (98-107); Estimated CRCL calculation 81 ml/min; Estimated Glomerular Filt Rate > 60; Glucose 132 mg/dL (65-110); Magnesium 1.9 mg/dL (1.6-2.3); Potassium 4.3 mmol/L (3.4-5.0); Sodium 136 mmol/L (137-145)
[2022-09-23 08:31] LABS: Glucose Point of Care 136 mg/dl (65-105)
[2022-09-23] MEDS: ARIPiprazole 10 MG TABLET PO (09:37)
[2022-09-23] MEDS: TAMSULOSIN HCL 0.4 MG CAPSULE PO ×2 (09:37→16:48)
[2022-09-23] MEDS: GABAPENTIN 300 MG CAPSULE 600 MG PO ×3 (09:37→16:48)
[2022-09-23] MEDS: CYANOCOBALAMIN 1,000 MCG TABLET 5000 MCG BY MOUTH (09:37)
[2022-09-23] MEDS: MAGNESIUM OXIDE 400 MG TABLET PO (09:38)
[2022-09-23] MEDS: ESCITALOPRAM OXALATE 10 MG TABLET 20 MG PO (09:38)
[2022-09-23] MEDS: DICLOFENAC SOD 25 MG TABLET.EC 50 MG PO ×2 (09:38→16:48)
[2022-09-23] MEDS: ATORVASTATIN 20 MG TABLET PO (09:38)
[2022-09-23 12:07] LABS: Glucose Point of Care 296 mg/dl (65-105)
[2022-09-23] MEDS: INSULIN ASPART (*BKC) 100 UNITS/ML SUB-Q ×2 (12:52→21:08)
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
[2022-09-23 16:26] LABS: Glucose Point of Care 108 mg/dl (65-105)
[2022-09-23] MEDS: RIVAROXABAN 20 MG TABLET PO (16:48)
[2022-09-23 18:43] LABS: Hemoglobin A1C 8.8 % (<5.7)
[2022-09-23 20:06] LABS: Glucose Point of Care 210 mg/dl (65-105)
[2022-09-23] MEDS: traZODone HCL 50 MG TABLET PO (21:04)
[2022-09-23] MEDS: INSULIN GLARGINE (*BKC) 100 UNITS/ML 20 UNITS SUB-Q (21:08)
[2022-09-24] VITALS (16 sets, daily range): BP systolic 109–129; BP diastolic 75–91; PULSE 73–96; RESP 13–20; TEMP 36.3–36.8; O2SAT 95–100
[2022-09-24 08:17] LABS: Glucose Point of Care 149 mg/dl (65-105)
[2022-09-24] MEDS: ARIPiprazole 10 MG TABLET PO (08:41)
[2022-09-24] MEDS: ESCITALOPRAM OXALATE 10 MG TABLET 20 MG PO (08:41)
[2022-09-24] MEDS: DICLOFENAC SOD 25 MG TABLET.EC 50 MG PO ×2 (08:42→17:21)
[2022-09-24] MEDS: TAMSULOSIN HCL 0.4 MG CAPSULE PO ×2 (08:42→17:21)
[2022-09-24] MEDS: MAGNESIUM OXIDE 400 MG TABLET PO (08:42)
[2022-09-24] MEDS: ATORVASTATIN 20 MG TABLET PO (08:42)
[2022-09-24] MEDS: GABAPENTIN 300 MG CAPSULE 600 MG PO ×3 (08:42→17:20)
[2022-09-24] MEDS: CYANOCOBALAMIN 1,000 MCG TABLET 5000 MCG BY MOUTH (09:22)
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
--- NOTE | 2022-09-24 11:16 | PC.NURSE ---
This patient, Donald Guzman, was transferred to [ [id number]] on 09/24/22 at 1116. Personal belongings sent with patient. Report given to [MICHAEL Gonzalez ]. Appropriate documentation sent with patient.
[2022-09-24 12:04] LABS: Glucose Point of Care 109 mg/dl (65-105)
[2022-09-24 17:10] LABS: Glucose Point of Care 111 mg/dl (65-105)
[2022-09-24] MEDS: RIVAROXABAN 20 MG TABLET PO (17:21)
[2022-09-24] MEDS: traZODone HCL 50 MG TABLET PO (20:27)
[2022-09-24] MEDS: CEFDINIR 300 MG CAPSULE PO (20:27)
[2022-09-24] MEDS: INSULIN GLARGINE (*BKC) 100 UNITS/ML 20 UNITS SUB-Q (20:28)
[2022-09-24 20:59] LABS: Glucose Point of Care 191 mg/dl (65-105)
[2022-09-25 02:02] VITALS: PULSE 80; RESP 12; O2SAT 96
[2022-09-25 06:00] VITALS: BP 123/87; PULSE 75; RESP 18; TEMP 36.1; O2SAT 98
[2022-09-25 07:20] LABS: Glucose Point of Care 111 mg/dl (65-105)
[2022-09-25 07:46] LABS: Basophils Absolute Auto 0.1 K/mm3 (0.0-0.1); Basophils Percent Auto 0.8 % (0.2-1.2); Eosinophils Absolute Auto 0.3 K/mm3 (0-0.3); Hematocrit 42.4 % (42.0-52.0); Hemoglobin 13.3 g/dL (14.0-18.0); Immature Granulocyte Absolute 0.02 K/mm3 (0.00-0.031); Immature Granulocyte Percent A 0.3 % (0-0.5); Lymphocytes Absolute Auto 1.64 K/mm3 (0.9-3.2); Lymphocytes Percent Auto 26.3 % (18.3-44.2); Mean Corpuscular HGB Conc 31.4 g/dl (32-36); Mean Corpuscular Volume 89.3 fl (80-100); Mean Platelet Volume 9.7 fl (7.4-10.4); Monocytes Absolute Auto 0.5 K/mm3 (0.1-0.6); Neutrophils Absolute Auto 3.7 K/mm3 (1.3-6.7); Neutrophils Percent Auto 59.6 % (45.5-73.1); Platelet Count Result 241 k/mm3 (150-375); Red Blood Count 4.75 M/mm3 (4.6-6.20); Red Cell Distribution Width 13.9 % (11.5-14.5); White Blood Count 6.2 K/mm3 (4.5-10.0)
[2022-09-25 08:12] LABS: Alanine Aminotransferase 38 U/L (6-50); Alkaline Phosphatase 94 U/L (38-126); Anion Gap 4 mmol/L (8-16); Aspartate Amino Transferase 33 U/L (17-59); Bilirubin,Total 0.5 mg/dL (0.2-1.3); Blood Urea Nitrogen 14 mg/dL (9-20); Calcium 8.9 mg/dL (8.4-10.2); Carbon Dioxide 31 mmol/L (22-30); Chloride 103 mmol/L (98-107); Estimated CRCL calculation 91 ml/min; Estimated Glomerular Filt Rate > 60; Glucose 114 mg/dL (65-110); Magnesium 2.1 mg/dL (1.6-2.3); Potassium 4.6 mmol/L (3.4-5.0); Sodium 138 mmol/L (137-145)
[2022-09-25 08:23] VITALS: O2SAT 95
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
[2022-09-25] MEDS: TAMSULOSIN HCL 0.4 MG CAPSULE PO (09:00)
[2022-09-25] MEDS: DICLOFENAC SOD 25 MG TABLET.EC 50 MG PO (09:01)
[2022-09-25] MEDS: ARIPiprazole 10 MG TABLET PO (09:01)
[2022-09-25] MEDS: ESCITALOPRAM OXALATE 10 MG TABLET 20 MG PO (09:01)
[2022-09-25] MEDS: ATORVASTATIN 20 MG TABLET PO (09:01)
[2022-09-25] MEDS: GABAPENTIN 300 MG CAPSULE 600 MG PO (09:01)
[2022-09-25] MEDS: CYANOCOBALAMIN 1,000 MCG TABLET 5000 MCG BY MOUTH (09:01)
[2022-09-25] MEDS: MAGNESIUM OXIDE 400 MG TABLET PO (09:01)
[2022-09-25] MEDS: CEFDINIR 300 MG CAPSULE PO (09:01)
== END 2022-09-25 11:05 | disposition home or self-care (01) ==
LOC: ANHED 13:23 → ANHIMU 18:37 → ANH3MEDSUR 09-25 08:57 → ANHIMU 09-27 09:08
PROVIDERS: Emergency Medicine; Nurse Practitioner; Admitting Provider Student in an Organized Health Care Education/Training Program; Emergency Provider Emergency Medicine; PCP Family Medicine; Visit Provider Internal Medicine
DX: R55 Syncope and collapse (principal); N39.0 Urinary tract infection, site not specified; B96.1 Klebsiella pneumoniae [K. pneumoniae] as the cause of diseases classified elsewhere; S06.9X1S Unspecified intracranial injury with loss of consciousness of 30 minutes or less, sequela; V29.99XS Rider (driver) (passenger) of other motorcycle injured in unspecified traffic accident, sequela; E11.65 Type 2 diabetes mellitus with hyperglycemia; E78.2 Mixed hyperlipidemia; I10 Essential (primary) hypertension; I95.9 Hypotension, unspecified; F41.8 Other specified anxiety disorders; G47.33 Obstructive sleep apnea (adult) (pediatric); H81.10 Benign paroxysmal vertigo, unspecified ear; Z91.81 History of falling; N40.0 Benign prostatic hyperplasia without lower urinary tract symptoms; J98.11 Atelectasis; I34.0 Nonrheumatic mitral (valve) insufficiency; N32.81 Overactive bladder; E86.0 Dehydration; G89.29 Other chronic pain; M54.9 Dorsalgia, unspecified; M54.2 Cervicalgia; Z86.718 Personal history of other venous thrombosis and embolism; Z87.891 Personal history of nicotine dependence; Z79.891 Long term (current) use of opiate analgesic; Z79.1 Long term (current) use of non-steroidal anti-inflammatories (NSAID); Z79.4 Long term (current) use of insulin; Z79.01 Long term (current) use of anticoagulants; Z79.85 Long-term (current) use of injectable non-insulin antidiabetic drugs; Z79.899 Other long term (current) drug therapy; Z79.84 Long term (current) use of oral hypoglycemic drugs
CPT/HCPCS: 36415; 70450; 71045; 71275; 80053; 81001; 82948; 83036; 83605; 83690; 83735; 84443; 84484; 85025; 87040; 87077; 87086; 87186; 93005; 93306; 93880; 94002; 96361; 96365; 96366; 99285; A9270; G0378; J0696; J1815; J7120; Q9967

== ENCOUNTER 2023-03-28 09:09 | Outpatient (CLI) | payer MEDICARE, SELFPAY ==
--- NOTE | ~2023-03-28 | NM_ITS ---
EXAMINATION: NM ebony stress w perfusion DATE: 03/28/2023 10:57 INDICATION: Other forms of dyspnea TECHNIQUE: Rest images were obtained following intravenous administration of 9.8 mCi Tc99m tetrofosmi n (Myoview). The patient was infused intravenously with Lexiscan (Regadenoson). Then, 32.2 mCi Tc99m tetrofosmin (Myoview) was administered intravenously, and stress images were obtained. Data was recon structed into short axis and horizontal and vertical long axis SPECT images. Gated SPECT images were also obtained. COMPARISON: None. FINDINGS: There is no definite reversible or fixed perfusion abnormality to suggest ischemia or infar ction. There is normal left ventricular chamber size, wall motion and ejection fraction. Left ventr icular ejection fraction measures 53%. IMPRESSION: 1. Normal myocardial perfusion at rest and during stress. 2. Left ventricular ejection fraction measuring 53%. Reviewed, dictated and finalized at location A. ING SUPERVISOR
--- NOTE | 2023-03-28 09:47 | EST_ITS ---
Patient Info Name: Donald Guzman Age: 63 years : 1960 Gender: Male Ht: 72 in Wt: 210 lbs BSA: 2.22 m2 HR: 94 bpm BP: 104 / 78 mmHg Exam Date: 03/28/2023 10:13 AM Exam Location: Echo Lab Patient Status: Outpatient Admit Date: 03/28/2023 Staff Ordering Physician: Eduardo Weber DO Attending Provider: Eduardo Weber DO Exercise Technologist: Florina Bennett RDCS Exercise Physician: Eduardo Weber DO Exam Type: CA stress ebony w NM Study Info A regadenoson stress test was performed. Summary 1. 1. Negative lexiscan stress test for ischemic ST changes by ECG criteria. 2. 2. Stable hemodynamics throughout the test. 3. 3. Nuclear scan to follow and will be reported separately. Please correlate with it. 4. 4. Patient informed of the above results. Protocol: Lexiscan Stress ECG Details Stage: REST Duration (min): 1 min : 7 sec HR (bpm): 94 SBP (mmHg): 104 DBP (mmHg): 78 Stage: REST Duration (min): 8 min : 31 sec HR (bpm): 91 SBP (mmHg): 104 DBP (mmHg): 78 Stage: STAGE 1 Duration (min): 1 min : 0 sec HR (bpm): 108 SBP (mmHg): 95 DBP (mmHg): 77 Stage: RECOVERY Duration (min): 1 min : 0 sec HR (bpm): 123 SBP (mmHg): 95 DBP (mmHg): 77 Stage: RECOVERY Duration (min): 2 min : 0 sec HR (bpm): 119 SBP (mmHg): 95 DBP (mmHg): 77 Stage: RECOVERY Duration (min): 3 min : 0 sec HR (bpm): 111 SBP (mmHg): 96 DBP (mmHg): 73 Stage: RECOVERY Duration (min): 4 min : 0 sec HR (bpm): 113 SBP (mmHg): 96 DBP (mmHg): 73 Stage: RECOVERY Duration (min): 5 min : 0 sec HR (bpm): 108 SBP (mmHg): 95 DBP (mmHg): 64 Stage: RECOVERY Duration (min): 5 min : 22 sec HR (bpm): 108 SBP (mmHg): 95 DBP (mmHg): 64 Rest HR: 91 bpm Peak HR: 125 bpm Rest Sys BP: 104 mmHg Peak Sys BP: 96 mmHg Max Pred HR: 156 bpm % Max Pred HR: 80 % Target HR: 133 bpm Max RPP: 12,000 bpm*mmHg Termination Reason: Completed protocol Cardiac Symptoms: Shortness of breath Total Time: 1 min : 0 sec Rest Leonard BP: 78 mmHg Peak Leonard BP: 73 mmHg Total Dose: 0.4 mg Resting ECG Sinus rhythm, IRBBB. Stress ECG No ST changes. Arrhythmias None. Report Signatures
== END 2023-03-28 09:10 | disposition home or self-care (01) ==
PROVIDERS: PCP Emergency Medicine; Visit Provider Internal Medicine Cardiovascular Disease
DX: R06.09 Other forms of dyspnea (principal)
CPT/HCPCS: 78452; 93017; A9502; J2785

== ENCOUNTER 2023-05-12 09:34 | Outpatient (CLI) | payer MEDICARE, SELFPAY ==
--- NOTE | ~2023-05-12 | XR_ITS ---
Clinical Indication: Preoperative evaluation PA and lateral views of the chest: Comparison: 09/22/2022 Findings: The lungs are clear, without evidence of focal consolidation or pleural effusion. Cardiome diastinal silhouette is within normal limits. Bones and soft tissues are unremarkable. Impression: Normal chest. Reviewed, dictated and finalized at [facility]. DRESSER Impression: Normal chest.
== END 2023-05-12 09:35 | disposition home or self-care (01) ==
PROVIDERS: PCP Emergency Medicine
DX: Z01.818 Encounter for other preprocedural examination (principal); I10 Essential (primary) hypertension
CPT/HCPCS: 71046

== ENCOUNTER 2023-07-04 00:26 | Day surgery (SDC) | payer MEDICARE, SELFPAY ==
[2023-06-27 08:51] VITALS: BMI 29.0
--- NOTE | 2023-06-28 10:05 | PC.NURSE ---
Patient gave permission to go over date/times of procedure, instructions and to verify any health information. Sister Mendy called this am and reviewed all information, prep instructions emailed to her per request.
[2023-07-04 08:34] VITALS: BP 151/91; PULSE 116; RESP 18; TEMP 36.1; O2SAT 97
[2023-07-04 08:39] LABS: Glucose Point of Care 323 mg/dl (65-105)
[2023-07-04] MEDS: LACTATED RINGERS 1,000 ML 150 ML IV CONT (08:42)
--- NOTE | 2023-07-04 08:57 | WPDANESEPPF ---
Anes - Initial Pre Proc Eval Procedure: Operation Date: 07/04/23 09:30 Proposed Procedures p Screening Colonoscopy - Rudy Luna MD Date/Time: 07/04/23 08:57 Surgeon: Rudy Luna MD Pre Op Diagnosis: neoplasm screening Patient Data Age: 63 Gender: M Height: 1.85 m Weight: 93.6 kg Last Vital Signs Temp 96.9 F L 07/04/23 08:34 Pulse 116 H 07/04/23 08:34 Resp 18 07/04/23 08:34 BP 151/91 H 07/04/23 08:34 Pulse Ox 97 07/04/23 08:34 O2 Del Method Room Air 07/04/23 08:34 Allergies Allergy/AdvReac Type Severity Reaction Status Date / Time amoxicillin Allergy Intermediate Rash Verified 07/04/23 08:33 Penicillins Allergy Intermediate Dermatitis Verified 07/04/23 08:33 Home Medications Medication Instructions Recorded Confirmed Type magnesium oxide 500 mg PO DAILY 02/11/19 06/27/23 History blood-glucose meter (OneTouch #1 ea 03/31/20 03/01/23 Rx Ultra2 Meter kit) lancets 30 gauge (OneTouch Delica #200 ea 05/20/21 03/01/23 Rx Lancets) blood sugar diagnostic (OneTouch #200 ea 06/21/21 03/01/23 Rx Ultra Test strips) pen needle, diabetic 31 gauge x #100 ea 07/07/21 03/01/23 Rx 3/16 (BD Ultra-Fine Mini Pen Needle) atorvastatin 20 mg tablet 20 mg PO DAILY #90 tabs 09/10/21 06/27/23 Rx cyclobenzaprine 10 mg tablet 10 mg PO TID PRN muscle spasm #180 10/20/21 06/27/23 Rx tabs gabapentin 600 mg tablet 600 mg PO TID #270 tabs 03/01/22 06/27/23 Rx escitalopram oxalate 20 mg tablet 20 mg PO DAILY #90 tabs 03/15/22 06/27/23 Rx metformin 500 mg tablet,extended 2,000 mg PO QPM 90 days #360 tabs 03/15/22 06/27/23 Rx release 24 hr trazodone 50 mg tablet 50 mg PO .qhs #90 tabs 03/15/22 06/27/23 Rx aripiprazole 10 mg tablet (Abilify) 10 mg PO DAILY #90 tabs 03/18/22 06/27/23 Rx cinnamon bark 500 mg capsule 500 mg PO BID 05/20/22 06/27/23 History (Cinnamon) hydrocodone 5 mg-acetaminophen 325 1 tablet PO BID PRN Pain 06/28/22 06/27/23 History mg tablet ibuprofen 600 mg tablet 600 mg PO Q8H PRN Pain 06/28/22 06/27/23 History insulin detemir U-100 100 unit/mL 20 unit subcut HS 06/28/22 06/27/23 History (3 mL) subcutaneous pen (Levemir FlexTouch U-100 Insulin) meclizine 25 mg tablet 25 mg PO BID PRN dizziness #90 tabs 07/01/22 06/27/23 Rx diclofenac sodium 50 mg 50 mg PO BID 09/22/22 06/27/23 History tablet,delayed release dulaglutide 3 mg/0.5 mL 3 mg subcut WEEKLY 09/22/22 06/27/23 History subcutaneous pen injector (Trulicity) vitamin B complex 1 tablet PO DAILY 06/27/23 06/27/23 History Laboratory Tests 07/04/23 08:37 POC Capillary Glucose 323 H mg/dl (65-105) Patient hx anesthesia problems: none Family hx anesthesia problems: none Results Review: All pre-operative results and documents have been reviewed as part of the pre-operative evaluation. [facility], [facility] Past Medical History Medical History Anticoagulated on Coumadin At high risk for falls Benign paroxysmal positional vertigo due to bilateral vestibular disorder Chronic anxiety Chronic back pain Chronic depression Chronic neck pain Depression with anxiety Diabetes mellitus with hyperglycemia, with long-term current use of insulin Glucose 241 and hemoglobin A1c 9.5 on 01/08/2021. Hemoglobin A1c 10.0 on 05/26/2021. Fasting glucose 194 on 01/17/2022. History of diverticulitis Hypertension Irritable bowel syndrome Male erectile dysfunction, unspecified Mixed hyperlipidemia Total cholesterol 133, triglycerides 91, HDL 48, LDL 68 on 05/26/2021. Total cholesterol 170, triglycerides 128, HDL 51, LDL 96 on 01/17/2022. Obstructive sleep apnea (~2006) CPAP at 14 cm water pressure with medium air fit P 10 nasal mask with titration 03/23/2020 Obstructive sleep apnea on CPAP Overactive bladder Recurrent deep vein thrombosis (DVT) of both lower extremities Seasonal allergic rhinitis Traumatic brain injury wit
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
[2023-07-04] MEDS: INSULIN HUMAN REGULAR (*BKC) 100 UNITS/ML 15 UNITS SUB-Q (09:22)
[2023-07-04 09:26] VITALS: BP 101/65; PULSE 84; RESP 18; O2SAT 93
[2023-07-04 09:36] VITALS: BP 111/73; PULSE 91; RESP 20; O2SAT 95
[2023-07-04 09:42] LABS: Glucose Point of Care 320 mg/dl (65-105)
[2023-07-04 09:46] VITALS: BP 121/83; PULSE 74; RESP 20; O2SAT 100
== END 2023-07-04 09:58 | disposition home or self-care (01) ==
PROVIDERS: PCP Emergency Medicine; Visit Provider Internal Medicine Gastroenterology
PROC: 0DJD8ZZ Inspection of Lower Intestinal Tract, Via Natural or Artificial Opening Endoscopic (ICD-10-PCS; CPT 45378; principal; 2023-07-04 09:30)
DX: Z12.11 Encounter for screening for malignant neoplasm of colon (principal); E11.65 Type 2 diabetes mellitus with hyperglycemia; I10 Essential (primary) hypertension; K58.9 Irritable bowel syndrome, unspecified; N52.9 Male erectile dysfunction, unspecified; E78.2 Mixed hyperlipidemia; G47.33 Obstructive sleep apnea (adult) (pediatric); N32.81 Overactive bladder; J30.2 Other seasonal allergic rhinitis; F41.8 Other specified anxiety disorders; G89.29 Other chronic pain; M54.9 Dorsalgia, unspecified; M54.2 Cervicalgia; Z79.4 Long term (current) use of insulin; Z79.84 Long term (current) use of oral hypoglycemic drugs; Z79.891 Long term (current) use of opiate analgesic; Z79.1 Long term (current) use of non-steroidal anti-inflammatories (NSAID); Z79.85 Long-term (current) use of injectable non-insulin antidiabetic drugs; Z99.89 Dependence on other enabling machines and devices; Z98.890 Other specified postprocedural states; Z91.81 History of falling; Z98.1 Arthrodesis status; Z87.891 Personal history of nicotine dependence; Z87.820 Personal history of traumatic brain injury; Z86.718 Personal history of other venous thrombosis and embolism; Z82.49 Family history of ischemic heart disease and other diseases of the circulatory system; Z80.9 Family history of malignant neoplasm, unspecified
CPT/HCPCS: G0105; 82948; J1815; J2704; J7120